=== PATIENT | male | born 1945 | race African-American/Black ===

== ENCOUNTER 2020-11-25 09:48 | Inpatient (IN) | payer MEDICARE, SELFPAY ==
[2020-11-25] VITALS (16 sets, daily range): BP systolic 141–192; BP diastolic 56–97; PULSE 72–126; RESP 17–23; TEMP 35.9–36.6; O2SAT 86–99; BMI 27.6
--- NOTE | ~2020-11-25 | CT_ITS ---
EXAMINATION: CTA chest PE protocol DATE: 11/25/2020 10:54 INDICATION: Chest pain and shortness of breath TECHNIQUE: Computed tomography angiography (CTA) of the chest was performed with 100 mL Omnipaque-350 intravenous contrast timed to evaluate the pulmonary arteries. Coronal maximum intensity projection 3D-reconstructions were created by the technologist. The dose-length product (DLP) was 651.03 mGy-cm. Automated exposure control and iterative reconstruction technique were employed. COMPARISON: None. FINDINGS: There is good contrast opacification of the pulmonary arteries. There is a large embolus in the right main pulmonary artery with emboli extending into all of the visualized proximal right pulm onary arterial branches. A saddle embolus is present in the main pulmonary arteries which extends int o the left lower lobe pulmonary arteries. There are also smaller pulmonary emboli involving a proxima l branch of the left upper lobe pulmonary artery as well as smaller subsegmental emboli in the left u pper lobe. There is straightening of the interventricular septum of the heart. The heart size is norm al. The lungs are free of acute opacities. There is scarring in the left lung apex. There is no pleur al effusion or pneumothorax. No pathologically enlarged thoracic lymph nodes are identified. There is a 2.8 cm cyst in the upper pole of the left kidney. Two right renal arteries are noted. There is mil d thoracic spondylosis. IMPRESSION: 1. Central pulmonary emboli involving the right main pulmonary artery and multiple proximal branches as well as sagittal embolus and additional emboli in the left lung. Findings suggestive of right hear t strain. These findings were discussed with Dr. Tate Oswald MD in the Emergency Department at 1109 hours on 11/25/2020. Reviewed, dictated and finalized at location [facility] [employer] IMPRESSION: 1. Central pulmonary emboli involving the right main pulmonary artery and multi ple proximal branches as well as sagittal embolus and additional emboli in the left lung. Findings suggestive of right heart strain. These findings were discu ssed with Dr. Tate Oswald MD in the Emergency Department at 1109 hours o n 11/25/2020.
--- NOTE | ~2020-11-25 | US_ITS ---
EXAMINATION: US venous doppler LE EXAM DATE: 11/25/2020 14:50 INDICATION: PE/Swelling PE . TECHNIQUE: Multiple grayscale, color flow and Doppler images of the lower extremity deep venous syste ms bilaterally were obtained and reviewed. Correlation is made to CT pulmonary same date. FINDINGS: Right side: The right common femoral, femoral and profunda veins demonstrate normal color flow, respi ratory variation, augmentation and compressibility. Compressibility, color flow confirmed within the right popliteal, posterior tibial, peroneal, and greater saphenous veins. Left side: The left common femoral, femoral and profunda veins demonstrate normal color flow, respira tory variation, augmentation and compressibility. Compressibility, color flow confirmed within the l eft popliteal, posterior tibial, peroneal, and greater saphenous veins. IMPRESSION: 1. No lower extremity deep venous thrombosis bilaterally. Reviewed, dictated and finalized at location . [facility]
--- NOTE | 2020-11-25 09:56 | ECG_ITS ---
Measurements Intervals [place] Rate: 126 P: 36 CT: 124 QRS: -65 QRSD: 139 T: 46 QT: 326 QTc: 472 Interpretive Statements SINUS TACHYCARDIA RIGHT BUNDLE BRANCH BLOCK LEFT ANTERIOR FASCICULAR BLOCK BASELINE ARTIFACT- II, III, AVL, AVF, V3 ABNORMAL ECG Electronically Signed On 11-25-2020 11:48:17 [employer] ENGINEERING MANAGER by Giovanni Avendano D.O.
[2020-11-25 10:20] LABS: Basophils Percent Auto 0.3 % (0.2-1.2); Eosinophils Absolute Auto 0.2 K/mm3 (0-0.3); Hematocrit 44.5 % (42.0-52.0); Hemoglobin 14.9 g/dL (14.0-18.0); Immature Granulocyte Absolute 0.07 K/mm3 (0.00-0.031); Immature Granulocyte Percent A 0.7 % (0-0.5); Immature Platelet Fraction Pct 5.2 % (0.9-11.2); Lymphocytes Absolute Auto 1.63 K/mm3 (0.9-3.2); Lymphocytes Percent Auto 16.8 % (18.3-44.2); Mean Corpuscular HGB Conc 33.5 g/dl (32-36); Mean Corpuscular Hemoglobin 30.5 pg (26-34); Mean Corpuscular Volume 91.2 fl (80-100); Mean Platelet Volume 10.3 fl (7.4-10.4); Monocytes Absolute Auto 0.9 K/mm3 (0.1-0.6); Neutrophils Absolute Auto 6.9 K/mm3 (1.3-6.7); Neutrophils Percent Auto 71.2 % (45.5-73.1); Platelet Count Result 119 k/mm3 (150-375); Red Blood Count 4.88 M/mm3 (4.6-6.20); Red Cell Distribution Width 12.9 % (11.5-14.5); White Blood Count 9.7 K/mm3 (4.5-10.0)
[2020-11-25 10:29] LABS: Prothrombin Time 13.4 Seconds (11.1-14.7)
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
[2020-11-25 10:30] LABS: Anion Gap 4 mmol/L (8-16); Blood Urea Nitrogen 15 mg/dL (9-20); Calcium 9.2 mg/dL (8.4-10.2); Carbon Dioxide 31 mmol/L (22-30); Chloride 103 mmol/L (98-107); Estimated CRCL calculation 51 ml/min; Estimated Glomerular Filt Rate > 60; Glucose 196 mg/dL (75-110); Partial Thromboplastin Time 21.2 SECONDS (22.3-36.8); Potassium 4.2 mmol/L (3.4-5.0); Sodium 138 mmol/L (137-145)
[2020-11-25 10:45] LABS: NT Pro B Type Natriuretic Pept 175 PG/ML (5-100); Troponin I 0.084 ng/mL (0.000-0.034)
[2020-11-25] MEDS: HEPARIN SODIUM 5,000 UNITS/ML VIAL 6500 UNITS IV PUSH (11:02)
[2020-11-25] MEDS: HEPARIN SOD/D5W 100 UNITS/ML 25,000 UNITS/250 ML BAG 13 UNITS IV CONT (11:17)
--- NOTE | 2020-11-25 12:21 | PC.NURSE ---
Jose [facility] called and asked questions about pt over phone. requesting facesheet and states that they will call with a bed
[2020-11-25 13:19] LABS: Troponin I 0.755 ng/mL (0.000-0.034)
--- NOTE | 2020-11-25 13:55 | PC.NURSE ---
Ordered pt lunch tray
[2020-11-25 16:32] LABS: Glucose Point of Care 257 (65-105)
--- NOTE | 2020-11-25 17:50 | PC.NURSE ---
This patient, Zach Brady, was admitted to IMU Room 210-01. Patient/family oriented to hospital policies and general routines including ID bracelet, bed and alarms, visiting hours, pain management, procedures, bathroom and other care routines, personal items, smoking policy, room service/diet, and visiting hours. Information on how to activate the Rapid Response Team has been discussed. Patient/Family are encouraged to report perceived risks to care and to ask questions if they do not understand what they are told or what they should do.
[2020-11-25 18:03] LABS: Troponin I 0.931 ng/mL (0.000-0.034)
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
[2020-11-25 21:12] LABS: Glucose Point of Care 280 (65-105)
[2020-11-25] MEDS: IRBESARTAN 150 MG TABLET PO (21:44)
[2020-11-25] MEDS: SODIUM CHLORIDE 0.9% IV 1,000 ML 100 ML IV CONT (21:44)
[2020-11-25] MEDS: hydroCHLOROthiazide 12.5 MG CAPSULE PO (21:44)
[2020-11-26] VITALS (13 sets, daily range): BP systolic 132–179; BP diastolic 73–92; PULSE 90–111; RESP 20–23; TEMP 35.6–36.6; O2SAT 94–100
--- NOTE | 2020-11-26 | ECHO_ITS ---
Patient Info Name: Zach Brady Age: 75 years : 1945 Gender: Male Ht: 67 in Wt: 181 lbs BSA: 1.99 m2 HR: 95 bpm BP: 179 / 92 mmHg Heart Rhythm: Sinus Rhythm Technical Quality: Good Exam Date: 11/26/2020 10:50 AM Exam Location: [facility] Patient Status: Inpatient Admit Date: 11/25/2020 Staff Ordering Physician: Tate Oswald MD Manager Night: Zach Chang RDCS Attending Provider: Marylou Vincent MD Referring Physician: Darek CALDERON; Exam Type: CA echo doppler color flow Study Info Indications I26.09 - Other pulmonary embolism with acute cor pulmonale Complete two-dimensional, color flow and Doppler transthoracic echocardiogram is performed. History/Risk Factors Pulmonary embolism w/ right heart strain seen on CT; syncope, DM, HTN, chest pain, elevated trops. Summary 1. Complete two-dimensional, color flow and Doppler transthoracic echocardiogram is performed. 2. Left ventricular chamber dimension is normal. 3. Left ventricular systolic function is normal, estimated at 60-65%. 4. There is mildly increased left ventricular wall thickness. 5. Left ventricular septal wall motion is normal. 6. The left ventricular diastolic function is grade I diastolic dysfunction. 7. Left atrial chamber dimension is mildly enlarged. 8. There is mild mitral valve regurgitation. 9. There is mild aortic valve regurgitation. 10. Moderate pulmonary hypertension, estimated pulmonary arterial systolic pressure is 46 mmHg. 11. There is mild tricuspid valve regurgitation. Left Ventricle Left ventricular chamber dimension is normal. Left ventricular systolic function is normal, estimated at 60-65%. There is mildly increased left ventricular wall thickness. Left ventricular septal wall motion is normal. The left ventricular diastolic function is grade I diastolic dysfunction. Right Ventricle Right ventricular chamber dimension is normal. Right ventricular systolic function is normal. Left Atria Left atrial chamber dimension is mildly enlarged. Right Atria Right atrial chamber dimension is normal. Atrial Septum Intact interatrial septum visualized by color flow imaging. Aortic Valve The aortic valve is trileaflet. There is mild aortic valve sclerosis. There is no aortic valve stenosis. There is mild aortic valve regurgitation. Pulmonic Valve The pulmonic valve is normal. There is no pulmonic valve stenosis. There is trace pulmonic regurgitation. Mitral Valve The mitral valve has normal leaflets. There is no mitral valve stenosis. There is mild mitral valve regurgitation. Tricuspid Valve The tricuspid valve leaflets are normal. There is no significant tricuspid valve stenosis. There is mild tricuspid valve regurgitation. Moderate pulmonary hypertension, estimated pulmonary arterial systolic pressure is 46 mmHg. Pericardium/Pleural The pericardium appears normal. There is trivial pericardial effusion. Inferior Vena Cava Normal inferior vena cava with >50% collapse upon inspiration consistent with normal right atrial pressure, 5 mmHg. Aorta The aortic root size at the sinus of Valsalva is mildly dilated. Left Ventricular Outflow Tract Name Value Normal LVOT 2D
[2020-11-26 03:30] LABS: Basophils Percent Auto 0.4 % (0.2-1.2); Eosinophils Absolute Auto 0.1 K/mm3 (0-0.3); Eosinophils Percent Auto 0.7 % (0-4.4); Hematocrit 36.4 % (42.0-52.0); Hemoglobin 12.2 g/dL (14.0-18.0); Immature Granulocyte Absolute 0.03 K/mm3 (0.00-0.031); Immature Granulocyte Percent A 0.4 % (0-0.5); Immature Platelet Fraction Pct 4.6 % (0.9-11.2); Lymphocytes Absolute Auto 1.22 K/mm3 (0.9-3.2); Lymphocytes Percent Auto 16.1 % (18.3-44.2); Mean Corpuscular HGB Conc 33.5 g/dl (32-36); Mean Corpuscular Hemoglobin 30.4 pg (26-34); Mean Corpuscular Volume 90.8 fl (80-100); Mean Platelet Volume 9.9 fl (7.4-10.4); Monocytes Absolute Auto 0.7 K/mm3 (0.1-0.6); Monocytes Percent Auto 9.5 % (2.6-8.5); Neutrophils Absolute Auto 5.6 K/mm3 (1.3-6.7); Neutrophils Percent Auto 72.9 % (45.5-73.1); Platelet Count Result 110 k/mm3 (150-375); Red Blood Count 4.01 M/mm3 (4.6-6.20); Red Cell Distribution Width 12.8 % (11.5-14.5); White Blood Count 7.6 K/mm3 (4.5-10.0)
[2020-11-26 03:40] LABS: Partial Thromboplastin Time 136.5 SECONDS (22.3-36.8)
[2020-11-26 03:42] LABS: Anion Gap 1 mmol/L (8-16); Blood Urea Nitrogen 20 mg/dL (9-20); Calcium 8.6 mg/dL (8.4-10.2); Carbon Dioxide 31 mmol/L (22-30); Chloride 105 mmol/L (98-107); Estimated CRCL calculation 56 ml/min; Estimated Glomerular Filt Rate > 60; Glucose 264 mg/dL (75-110); Magnesium 1.7 mg/dL (1.6-2.3); Potassium 3.9 mmol/L (3.4-5.0); Sodium 137 mmol/L (137-145)
[2020-11-26 08:34] LABS: Glucose Point of Care 281 (65-105)
[2020-11-26] MEDS: SODIUM CHLORIDE 0.9% IV 1,000 ML 100 ML IV CONT ×2 (09:07→20:55)
[2020-11-26] MEDS: INSULIN ASPART (*BKC) 100 UNITS/ML SUB-Q ×2 (09:08→12:41)
[2020-11-26] MEDS: HEPARIN SOD/D5W 100 UNITS/ML 25,000 UNITS/250 ML BAG 9 UNITS IV CONT (09:09)
[2020-11-26] MEDS: HEPARIN SODIUM 5,000 UNITS/ML VIAL 6000 UNITS IV PUSH (12:41)
[2020-11-26 12:44] LABS: Glucose Point of Care 262 (65-105)
[2020-11-26 13:56] LABS: SARS-CoV-2 RNA PCR Negative
--- NOTE | 2020-11-26 16:01 | PM.IMPN ---
Progress Note: A&P Assessment and Plan (1) Acute saddle pulmonary embolism: Qualifiers: Acute cor pulmonale presence: unspecified Qualified Code(s): I26.92 - Saddle embolus of pulmonary artery without acute cor pulmonale Code(s): I26.92 - Saddle embolus of pulmonary artery without acute cor pulmonale Status: Acute Assessment and Plan: The patient has been admitted to IMU, telemetry. Continue IV heparin. pain control as needed with IV morphine. Continue supplemental oxygen. Continuous pulse oximetry. The patient is currently awaiting transfer to [facility] for possible catheter directed tPA therapy. 11/26/20 16:01 Patient is 75-year-old male was brought to the emergency department after he had a syncopal episode with collapse upon arrival patient had a elevated D-dimer CTA of the lungs showed a massive pulmonary emboli with right heart strain most likely cause of his syncopal episode, with significant large emboli and right heart strains patient will benefit EKOS, ER physician spoke with Dr. Wells at [facility] and patient is accepted for transfer waiting for bed, mean while patient is started on Heparin and today patient stats he is feeling much better and not as short of breath. concerned patient may COVID patient is tested and isolated, patient had a cardiac echo patient is a preserved systolic function with ejection fraction 60-65%, right ventricle is normal in dimension as well as systolic function suggesting patient does not right heart strain, will continue to monitor and further recommendation to follow. (2) Syncope and collapse: Code(s): R55 - Syncope and collapse Status: Acute Assessment and Plan: appears to be secondary to acute PE. The patient does have history of orthostasis. Light IV hydration overnight. Continue telemetry. Check TSH reflex T4. Echocardiogram in a.m.. Fall precautions. (3) Elevated troponin: Code(s): R77.8 - Other specified abnormalities of plasma proteins Status: Acute Assessment and Plan: appears to be secondary to acute bilateral pulmonary emboli. Trend troponin. Monitor for chest pain. (4) Chest pain: Qualifiers: Chest pain type: chest pain on breathing Qualified Code(s): R07.1 - Chest pain on breathing Code(s): R07.9 - Chest pain, unspecified Status: Acute Assessment and Plan: Pleuritic chest pain is likely secondary to acute pulmonary embolism. Continue pain control as needed. Continue treatment for acute PE. (5) Suspected 2019 novel coronavirus infection: Code(s): Z20.822 - Contact with and (suspected) exposure to COVID-19 Status: Acute Assessment and Plan: Patient was swabbed in the emergency room for COVID-19. Continue droplet isolation. COVID-19 results are pending. 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 (7) Hypertension: Qualifiers: Hypertension type: unspecified Qualified Code(s): I10 - Essential (primary) hypertension Code(s): I10 - Essential (primary) hypertension Status: Chronic Assessment and Plan: Monitor blood pressure. Continue hydrochlorothiazide and irbesartan. Subjective Date/time seen: 11/26/20 16:01 Patient is 75-year-old male was brought to the emergency department after he had a syncopal episode with collapse upon arrival patient had a elevated D-dimer CTA of the lungs showed a massive pulmonary emboli with right heart strain most likely cause of h
[2020-11-26 17:23] LABS: Glucose Point of Care 188 (65-105)
[2020-11-26 19:30] LABS: Partial Thromboplastin Time 194.4 SECONDS (22.3-36.8)
[2020-11-26 20:16] LABS: Glucose Point of Care 262 (65-105)
[2020-11-26] MEDS: IRBESARTAN 150 MG TABLET PO (20:57)
[2020-11-26] MEDS: hydroCHLOROthiazide 12.5 MG CAPSULE PO (20:57)
--- NOTE | 2020-11-27 11:09 | PM.TDS ---
Transfer Discharge Sum: Prov Provider Date of admission: 11/25/20 14:20 Primary care physician: Vanesa Wood, DO Admitting clinician: Marylou Vincent MD DS: Admitting Diagnosis Admitting Diagnosis Admitting Diagnosis: Chief Complaint: Acute syncope and collapse. DS: Discharge Diagnosis Discharge Diagnosis (1) Acute saddle pulmonary embolism: Qualifiers: Acute cor pulmonale presence: unspecified Qualified Code(s): I26.92 - Saddle embolus of pulmonary artery without acute cor pulmonale Code(s): I26.92 - Saddle embolus of pulmonary artery without acute cor pulmonale Status: Acute Assessment and Plan: The patient has been admitted to IMU, telemetry. Continue IV heparin. pain control as needed with IV morphine. Continue supplemental oxygen. Continuous pulse oximetry. The patient is currently awaiting transfer to [facility] for possible catheter directed tPA therapy. 11/26/20 16:01 Patient is 75-year-old male was brought to the emergency department after he had a syncopal episode with collapse upon arrival patient had a elevated D-dimer CTA of the lungs showed a massive pulmonary emboli with right heart strain most likely cause of his syncopal episode, with significant large emboli and right heart strains patient will benefit EKOS, ER physician spoke with Dr. Wells at [facility] and patient is accepted for transfer waiting for bed, mean while patient is started on Heparin and today patient stats he is feeling much better and not as short of breath. concerned patient may COVID patient is tested and isolated, patient had a cardiac echo patient is a preserved systolic function with ejection fraction 60-65%, right ventricle is normal in dimension as well as systolic function suggesting patient does not right heart strain, will continue to monitor and further recommendation to follow. (2) Syncope and collapse: Code(s): R55 - Syncope and collapse Status: Acute Assessment and Plan: appears to be secondary to acute PE. The patient does have history of orthostasis. Light IV hydration overnight. Continue telemetry. Check TSH reflex T4. Echocardiogram in a.m.. Fall precautions. (3) Elevated troponin: Code(s): R77.8 - Other specified abnormalities of plasma proteins Status: Acute Assessment and Plan: appears to be secondary to acute bilateral pulmonary emboli. Trend troponin. Monitor for chest pain. (4) Chest pain: Qualifiers: Chest pain type: chest pain on breathing Qualified Code(s): R07.1 - Chest pain on breathing Code(s): R07.9 - Chest pain, unspecified Status: Acute Assessment and Plan: Pleuritic chest pain is likely secondary to acute pulmonary embolism. Continue pain control as needed. Continue treatment for acute PE. (5) Suspected 2019 novel coronavirus infection: Code(s): Z20.822 - Contact with and (suspected) exposure to COVID-19 Status: Acute Assessment and Plan: Patient was swabbed in the emergency room for COVID-19. Continue droplet isolation. COVID-19 results are pending. 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 (7) Hypertension: Qualifiers: Hypertension type: unspecified Qualified Code(s): I10 - Essential (primary) hypertension Code(s): I10 - Essential (primary) hypertension Status: Chronic Assessment and Plan: Monitor blood pressure. Continue hydrochlorothiazide and irbesartan. Transfe
== END 2020-11-26 22:00 | disposition short-term general hospital (02) | DRG 176 ==
LOC: ANHED 10:45 → ANHIMU 15:02
PROVIDERS: Family Medicine; Nurse Practitioner; Admitting Provider Family Medicine; Emergency Provider Emergency Medicine; PCP Family Medicine; Visit Provider Family Medicine
DX: I26.92 Saddle embolus of pulmonary artery without acute cor pulmonale (principal); Z20.822 Contact with and (suspected) exposure to COVID-19; R09.02 Hypoxemia; E11.9 Type 2 diabetes mellitus without complications; R55 Syncope and collapse; I10 Essential (primary) hypertension; Z79.4 Long term (current) use of insulin; Z90.49 Acquired absence of other specified parts of digestive tract
CPT/HCPCS: 36415; 71275; 80048; 82948; 83735; 83880; 84443; 84484; 85025; 85055; 85610; 85730; 93005; 93306; 93970; 96365; 96366; 99285; A9270; C9803; J1644; J1815; J7030; Q9967; U0003; U0005

== ENCOUNTER 2025-02-06 07:00 | Outpatient (CLI) | payer MEDICARE, SELFPAY ==
--- NOTE | ~2025-02-06 | PE_ITS ---
EXAMINATION: PET_PETPSMAST_PT DATE: 02/06/2025 09:20 INDICATION: Prostate cancer TECHNIQUE: 5.353 mCi of Illucix Ga-68([id number]) was administered i.v. Low dose computed josefina graphy (CT) images were acquired from the base of the brain to the base of the brain to the proximal thighs for attenuation correction and anatomic localization. Positron emission tomography (PET) image s were acquired in the same distribution beginning 86 minutes after injection. Images including fused PET/CT images were reconstructed in axial, coronal, and sagittal planes. Automated exposure control technique was employed. The dose-length product was 874.58mGy-cm. COMPARISON: None FINDINGS: Head/neck: Typical pattern of symmetric physiologic increased activity in the lacrimal, parotid and submandibula r glands as well as along the mucosa of the nasal and oral cavities, pharynx and hypopharynx. No path ologically enlarged cervical lymphadenopathy or suspicious foci of increased uptake in the visualized head or neck. Chest: Images are clear with no suspicious pulmonary nodules, pneumonia, pulmonary edema or pleural effusion . Heart size is normal. No pericardial effusion. Thoracic aorta is normal in caliber. No pathological ly enlarged or PSMA avid thoracic lymphadenopathy. Abdomen/pelvis/proximal thighs: Physiologic renal accumulation and excretion of activity in the kidneys, bladder and along portions o f ureters. 2.5 cm cyst at the upper pole the left kidney. Prostatomegaly measuring 6.5 x 5.1 cm. Ther e is approximately 3.5 x 2.5 x 2.0 cm region of prominent increased PSA may uptake with maximal SUV o f 39 at the right posterior aspect of the prostate. There is some urine contamination at the glans of the penis. Normal degree and slightly heterogenous pattern of increased uptake throughout the liver and spleen without radiologic correlate or dominant PSMA avid lesion. Cholecystectomy clips the gallb ladder fossa. The pancreas and bilateral adrenal glands are normal. Moderate uptake scattered through out the bowels with typical duodenal and proximal jejunal predominance and without radiologic correla te, also likely physiologic. Moderate diverticulosis along the sigmoid colon without adjacent from tr omaira stranding to suggest diverticulitis. Normal appendix. Likely vasectomy clips along the bilateral spermatic cords. No other abnormal foci of increased uptake or pathologically enlarged lymphadenopath y in the abdomen, pelvis or proximal thighs. Musculoskeletal: No suspicious lytic, blastic or PSMA avid bone lesions. IMPRESSION: 1. Large region of prominent increased activity at the right posterior aspect of the enlarged prostat e consistent with primary prostate cancer. No lesion suspicious for metastatic disease. Reviewed, dictated and finalized at location B. IMPRESSION: 1. Large region of prominent increased activity at the right posterior aspect o f the enlarged prostate consistent with primary prostate cancer. No lesion susp icious for metastatic disease.
--- OUTSIDE RECORDS SUMMARY | 2025-02-06 07:06 | XMS_ITS ---
Author Name Auto Generated, Auto Generated Organization [facility] Address [address] [place] [address] Phone [phone] Care Team Providers Care Chart Collector Name Role Phone Vanesa Wood Unavailable [phone] Genevieve Carlton Unavailable [phone] Functional Status No Results Mental Status No Results Allergies and Intolerances No Known Allergies Encounters Program Name Primary Diagnosis Admission Date/Time Dis charge Date/Time null WedJun 08 06:30 :00 EDT 2021 [facility] Nov 28 19:00:00 EST 2023February 09 08:00:00 EDT 2023 Problems Active Concerns * Parkinson's disease without dyskinesia, without mention of fluctuations* Code: * Start Date: WedNov 29 00:00:00 EST 2023 * End Date: * Text: * Repeated falls* Code: * Start Date: WedNov 29 00:00:00 EST 2023 * End Date: * Text: * Weakness* Code: * Start Date: WedNov 29 00:00:00 EST 2023 * End Date: * Text: * Unsteadiness on feet* Code: * Start Date: WedNov 29 00:00:00 EST 2023 * End Date: * Text: Reason for Referral Past Medical History
--- OUTSIDE RECORDS SUMMARY | 2025-02-06 07:06 | XMS_ITS | Referral Summary ---
Author Organization [facility] 8 [facility] Address [address] [place] [address] Care Team Providers Care Barrel Repairer Name Role Phone Maryam Alvarez MD Unavailable Roselyn Delarosa DO Unavailable [phone] Royal Neida Hsu MD Unavailable [phone] Genevieve Carlton MD PhD Unavailable [phone] Katerin Day MD Unavailable [phone] Sander Hou MD Unavailable [phone] Raul De León MD Unavailable [phone] Elen Carranza MD Unavailable [phone] Elinor Calderon NP Unavailable [phone] Ector Michaels MD Primary Care Provider Encounters Date Type Department Care Team Description 01/11/2025 11:00 AM CDT - 01/11/2025 12:00 PM CDT Surgery [facility] Operating Room [address] [place] [address] Tony Alcantara MD URONAV GUIDED PROSTATE BIOPSY 01/11/2025 9:56 AM CDT Anesthesia Event [facility] Operating Room [address] [place] [address] Zaki Lisa MD McDowell, Juri Osmell, MD 01/11/2025 8:18 AM CDT - 01/11/2025 12:30 PM CDT Hospital Encounter [facility] Operating Room [address] [place] [address] Tony Alcantara MD Elevated prostate specific antigen (PSA) Discharge Disposition: Discharge to home or self care 12/28/2024 11:15 AM CDT Office Visit [address] 6[address] [place] [address] Kvng, Elinor Marquez NP Lewy body dementia without behavioral disturbance (HCC) (Primary Dx); Speech and language deficits 12/19/2024 Telephone [facility] Medical [facility] Diabetes and Endocrinology [address] [place] [phone] Maryam Alvarez MD Forms/questionnaires ( Advanced) 12/18/2024 Telephone [facility] Diabetes [facility] Endocrinology [address] [place] [phone] Lawanda Belcher NP [employer] 12/18/2024 3:00 PM CDT Office Visit [facility] Diabetes [facility] Endocrinology [address] [place] [phone] Lawanda Belcher NP Type 1 diabetes mellitus with hyperglycemia (HCC) (Primary Dx); Hypertension associated with type 1 diabetes mellitus (HCC); Insulin pump status 12/12/2024 Telephone [facility] Diabetes [facility] Endocrinology [address] [place] [phone] Lawanda Belcher NP Forms/questionnaires ([employer]) 11/27/2024 2:45 PM QUALITY CONTROLLER Orders Only [facility] [address] [place] [address] from Last 3 Months Allergies Active Allergy Reactions Criticality Noted Date Comments Famotidine Delusions Medium 11/28/2020 Medications lancing device misc Lancing device for One Touch Ultra 0 012 Active docusate sodium (COLACE) 100 mg capsuleIndicatio ns:constipation Take 1 capsule (100 mg total) by mouth as needed for constipation Active blood-glucose meter [facility] [place] blood[place]glu meter,cont-trans liliam [facility] [place] urine glucose-ketones test stripIndications :Type 1 diabetes mellitus with hyperglycemia (HCC) Use as needed 50 strip 1 021 Active insulin syringe-needle U-100 0.5 mL 31 gauge x 5/16 syringeIndicatio ns:Type 1 diabetes mellitus with hyperglycemia (HCC) Use to inject 4 times daily as directed 100 each 021 Active blood glucose diagnostic (Contour Next Test Strips) stripIndications :Type 1 diabetes mellitus with hyperglycemia (HCC) Use to test blood sugars twice a day 200 strip 1 021 Active glucagon (Baqsimi) 3 mg/actuation spray,non-aeroso l Administer 1 spray into one nostril as needed (use for hypoglycemia) 2 each 3 022 Active MiniMed [place] Advance Inf Set23 infusion set 024 Active [facility] [place] [address] 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) TAKE 1 TABLET BY MOUTH EVERY 12 HOURS 200 tablet 2 025 Active NIFEdipine (NIFEdipine CC) 60 mg 24 hr tablet Take 1 tablet (60 mg total) by mouth every evening Active cholecalciferol (VITAMIN D-3) 5,000 unit tablet Take 1 tablet (5,000 Units total) by mouth every other day Active donepeziL (ARICEPT) 5 mg tablet Take 1 tablet (5 mg total) by mouth every morning Active spironolactone (ALDACTONE) 25 mg tablet Take 1 tablet (25 mg total) by mouth 2 (two) times a day Active silver sulfadiazine (SILVADENE, SSD) 1 % creamIndications :skin ulcer Apply 1 g topically daily as needed for wound care Active acetaminophen ER (TYLENOL) 650 mg 8 hr tablet Take 1 tablet (650 mg total) by mouth every 8 (eight) hours as needed for pain 650 mg-1300 mg every 8 hr prn Active insulin lispro (HumaLOG, ADMELOG) 100 unit/mL vial for injectionIndicat ions:Type 1 diabetes mellitus with hyperglycemia (HCC) INJECT 50 UNITS SUBCUTANEOUSLY DAILY VIA INSULIN PUMP DIRECTED 50 mL 2 025 Active insulin lispro (HumaLOG) 100 unit/mL vial for injection INJECT SUBCUTANEOUSLY 50 UNITS DAILY VIA INSULIN PUMP DIRECTED 50 mL 3 024 2024 Discontinued Active Problems Problem Noted Date Diagnosed Date Elevated prostate specific antigen (PSA) 025 Encounter for Medicare annual wellness exam 04/2024 Assessment & Plan (08/17/2024 1:51 PM QUALITY CONTROLLER): A(n) yearly Medicare Annual Wellness Visit has been performed today. Mick Baron is not up to date on screening tests. He is in need of Hepatitis B screening. He is not up to date on needed preventative vaccinations; He is in need of Influenza, given today. We discussed healthy lifestyle habits, educational material has been given. Medications reviewed, changes documented as per the medical record and discussed with patient along with risks vs benefits. Specific topics reviewed: drugs, ETOH, and tobacco, importance of regular dental care, importance of regular exercise, importance of varied diet, limit TV, media violence, minimize junk food, and seat belts. Return in 6 months Benign prostatic hyperplasia with nocturia 08/16 Acute saddle pulmonary embolism with acute cor p ulmonale 04/06/2024 Establishing care with new doctor, encounter for 04/06/2024 Assessment & Plan (04/06/2024 2:32 PM CDT): A(n) initial visit to establish care has been performed today. Mick Baron is not up to date on screening tests. He is in need of Diabetic foot exam, Diabetic kidney disease screening, and Cholesterol screening. He is up to date on needed preventative vaccinations. We discussed healthy lifestyle habits, educational material has been given. Medications reviewed, changes documented as per the medical record and discussed with patient along with risks vs benefits. Return in 5 months Frequent falls 11/22/2023 Assessment & Plan (11/22/2023 2:26 PM QUALITY CONTROLLER): Physical therapy, occupational therapy Balance problem 11/22/2023 Parkinsonism 11/22/2023 Double vision 11/22/2023 Assessment & Plan (11/22/2023 2:25 PM QUALITY CONTROLLER): Occurs only when reading, f/u with opthalmology Insulin pump status 05/01/2021 Assessment & Plan (12/18/2024 4:00 PM CDT): Pump setting changes: -Bolus BEFORE eating -change from 9am to 10a & increased from 1.15 to 1.25 units/hr. Current medications: Humalog via Medtronic 780G insulin pump BR: 12a 0.575, 4a 0.650, 7a 0.75, 10a 1.25, 3p 0.975, 11p 0.650 CR 7.8 CF 30 Target 110 AIT 2 hours Assessment & Plan (05/15/2024 10:52 AM CDT): Decreased active insulin time from 3 hours to 2 hours: Current medications: Humalog via Medtronic 780G insulin pump BR: 12a 0.575, 4a 0.650, 7a 0.75, 9a 1.15, 3p 0.975, 11p 0.650 CR 7.8 CF 30 Target 110 AIT 2 hours Assessment & Plan (07/12/2023 11:29 AM CDT): Persistently elevated blood sugars. Below are basal rate changes: BR: 12a changed from 0.475 to 0.575, 4a 0.650, 7a changed from 0.725 to 0.75, added 9am 1.15, 3p changed from 0.875 to 0.975, 11p stayed same at 0.650 Current medications: Novolog via medtronic 670G pump BR: 12a 0.575, 4a 0.65 7a 0.75, 9a 1.15, 3p 0.975 11p 0.65 CR 8 CF 30 Target 110 Assessment & Plan (04/06/2023 10:33 AM CDT): Pump setting changes to basal rates at 10am (increased from 0.90 to 1.0) & 3p (increased from 0.775 to now 0.875) Current medications: Novolog via medtronic 670G pump BR: 12a 0.475, 4a 0.650, 7a 0.725, 10a 1.0, 3p 0.875, 11p 0.650 CR 8 CF 30 Target 110 Assessment & Plan (05/01/2021 3:26 PM CDT): Continue current settings Lewy body dementia without behavioral disturbanc e 03/24/2021 Overview (06/26/2024): Onset 2017 (shuffling, visual hallucinations, fluctuations) Meds: donepezil/Aricept 10 mg (did not increase due to bradycardia, avoiding Namenda due to renal impairment). Assessment & Plan (06/26/2024 10:39 AM CDT): Onset 2017 (shuffling, visual hallucinations, fluctuations) Meds: donepezil/Aricept 10 mg (did not increase due to bradycardia, avoiding Namenda due to renal impairment). -provided blood sample today for genetic research - met with career specialist for resources and support -patient is interested in opportunities for research, provided information on where to obtain (see AVS. Assessment & Plan (11/22/2023 2:25 PM QUALITY CONTROLLER): Donepezil/Aricept 10 mg daily Namenda not indicated at this mild stage of impairment. Would need to clear with nephrology Physical therapy, occupational therapy and Speech Therapy Parkinson's Disease resources provided by Platform Power Technician Tamra Valerio Assessment & Plan (08/10/2023 12:34 PM CDT): Managed by neurology, continue donepezil . Assessment & Plan (08/05/2022 11:16 AM CDT): Stable. Cont. Current prescription medications. Patient managed by the memory center in [place]. Assessment & Plan (04/06/2022 5:23 PM CDT): Stable course of disease. Some improvement in daily life. Short term memory issues captured in testing. Continue Aricept 5mg every morning. Do not recommend increase given lower heart rate. No plans to add Namenda or Sinemet at the current time. [place] follow[place] driving [place] RTC in 1 year. Assessment & Plan (08/04/2021 6:19 PM CDT): Stable. Cont. Current prescription medications. Assessment & Plan (05/09/2021 11:57 AM CDT): Stable. Followed by Neurology. Continue current medications. Assessment & Plan (03/24/2021 2:11 PM CDT): Brain MRI - 3D Sleep Medicine for RBD evaluation Aricept 5mg at night, monitor for visual hallucinations Anemia 12/10/2020 Assessment & Plan (12/19/2020 12:21 PM QUALITY CONTROLLER): Clinically improving. Keep scheduled appointment with electrical engineering director oncologist. Thrombocytopenia 11/29/2020 Assessment & Plan (08/05/2022 11:17 AM CDT): Followed closely by Hematology. Asymptomatic. Keep scheduled appointment. Assessment & Plan (12/19/2020 12:20 PM QUALITY CONTROLLER): Followed by hematology oncology. Clinically improving. Assessment & Plan (12/02/2020 1:39 PM QUALITY CONTROLLER): ctm Assessment & Plan (12/01/2020 2:18 PM QUALITY CONTROLLER): ctm History of pulmonary embolism 11/26/2020 Assessment & Plan (05/09/2021 11:56 AM CDT): Asymptomatic. Managed by Hematology-Oncology. Continue current medications. Assessment & Plan (12/19/2020 12:18 PM QUALITY CONTROLLER): This patient has upcoming appointment with Hematology-Oncology. Patient currently on Lovenox, will remain on this dose until seen by Hematology-Oncology. Long discussion on possible workup for his sudden acute saddle pulmonology embolism. Patient also has some concerns about getting his 2nd COVID vaccine. He had the 1st vaccine administered prior to him spontaneously acquiring this saddle pulmonary embolism. Encouraged patient to discuss this in detail with the electrical engineering director on his upcoming visit. Assessment & Plan (12/02/2020 1:39 PM QUALITY CONTROLLER): Cont lmwh Heme follow up Assessment & Plan (12/02/2020 1:29 PM QUALITY CONTROLLER): Doing well, but need to minimize risk of hypoglycemia. Assessment & Plan (12/01/2020 2:16 PM QUALITY CONTROLLER): Syncope 11/25 with large saddle PE extending into right PA - LED/UED neg - TTE: normal RV size, TAPSE 1.6, 60/60 sign. EF 65% - Hep gtt - given size of PE and unclear precipitant will transition to lovenox rather than a NOAC at this time until heme f/u - Vascular evaluated - No right heart strain so no benefit to thrombectomy at this point - OP heme referral Visual hallucination 08/21/2020 Speech and language deficits 04/23/2020 Assessment & Plan (11/22/2023 2:26 PM QUALITY CONTROLLER): Speech Therapy Assessment & Plan (04/23/2020 5:50 PM CDT): Modified Barium swallow - call with results Start Pepcid 40 mg at bedtime Call if no improvement in 8 weeks LPR discussed and Handout provided Laryngeal spasm 04/23/2020 Assessment & Plan (04/23/2020 5:51 PM CDT): Modified Barium swallow - call with results Start Pepcid 40 mg at bedtime Call if no improvement in 8 weeks LPR discussed and Handout provided Dysphagia 03/25/2020 Assessment & Plan (04/23/2020 5:51 PM CDT): Modified Barium swallow - call with results Start Pepcid 40 mg at bedtime Call if no improvement in 8 weeks Assessment & Plan (03/25/2020 8:40 AM CDT): Referred to ENT for further eval/mgmt. Chronic neck pain 03/25/2020 Chronic throat clearing 11/27/2019 Assessment & Plan (11/27/2019 8:44 AM QUALITY CONTROLLER): Consider adding Zyrtec 10 mg daily. BMI 27.0-27.9,adult 07/31/2019 Gait disturbance 02/20/2019 Hypertension associated with type 1 diabetes vera litus 02/24/2014 Overview (03/25/2020): Assessment & Plan (12/18/2024 3:17 PM CDT): Chronic problem. Controlled on current spironolactone 25mg daily. Assessment & Plan (05/15/2024 10:35 AM CDT): Chronic problem. Controlled on current spironolactone 25mg daily. Assessment & Plan (08/10/2023 12:32 PM CDT): Blood pressure at goal less than 140/90, continue current prescription medications, spironolactone. Assessment & Plan (04/06/2023 10:32 AM CDT): Chronic problem. Controlled on current spironolactone 25mg daily. Nifedipine stopped earlier this month d/t orthostatic hypotension. No changes at this time. Assessment & Plan (09/17/2022 5:04 PM QUALITY CONTROLLER): Chronic, well controlled Importance of low salt diet and exercise were discussed Continue current meds Assessment & Plan (08/05/2022 11:18 AM CDT): Blood pressure at goal less than 140/90, continue current prescription medications. Managed by Nephrology. Assessment & Plan (02/26/2022 2:43 PM CDT): Chronic, well controlled Continue current meds Assessment & Plan (11/27/2021 12:14 PM QUALITY CONTROLLER): Goal blood pressure is less than 140/85 Low salt diet was discussed andd recommended The importance of daily aerobic exercise was also emphasized. Continue current meds. Assessment & Plan (08/21/2021 2:26 PM QUALITY CONTROLLER): BP at goal Low salt diet Exercise Continue current meds Assessment & Plan (08/04/2021 6:20 PM CDT): Low blood pressure today without symptoms. Encouraged patient to reach out to mast maker about today's bp reading. Also, encouraged patient to increase daily water intake. Assessment & Plan (05/09/2021 11:56 AM CDT): Not yet at goal of less than 140/90. Increase it irbesartan 150 mg daily up to 300 mg daily. Continue hydrochlorothiazide. Referred to Nephrology for further evaluation and management. Assessment & Plan (05/01/2021 3:24 PM CDT): Controlled on current medications. Continue plan. Assessment & Plan (02/06/2021 9:41 AM CDT): Improving. Continue current management. Will hold off on referral to nephrology at this time. Assessment & Plan (01/30/2021 2:29 PM CDT): Goal blood pressure is less than 140/85 Low salt diet was discussed andd recommended The importance of daily aerobic exercise was also emphasized. Continue current meds, including INDU-I or ARB, e.g. Avapro Assessment & Plan (12/19/2020 12:21 PM QUALITY CONTROLLER): Well controlled. Continue current management. Assessment & Plan (12/02/2020 1:38 PM QUALITY CONTROLLER): BP low normal since arrival - continue to hold home HCTZ and ARB Assessment & Plan (11/29/2020 8:20 PM QUALITY CONTROLLER): BP low normal since arrival - continue to hold home HCTZ and ARB Assessment & Plan (10/25/2020 9:32 AM QUALITY CONTROLLER): Controlled on current medications. Continue plan. Assessment & Plan (08/01/2020 9:06 PM CDT): Clinically improved, continue current meds. Assessment & Plan (07/11/2020 9:10 AM CDT): Controlled on current medications. Continue plan. Assessment & Plan (04/04/2020 10:07 AM CDT): Goal blood pressure is less than 140/85 Low salt diet recommended Daily aerobic exercise Continue current meds, including INDU-I or ARB Assessment & Plan (03/25/2020 8:39 AM CDT): Hypotensive today, will d/c HCTZ. Patient denies any current dependent edema. Check bps daily, if bps do not improve and become asymptomatic, notify our office for an earlier appt. Assessment & Plan (12/28/2019 11:09 AM CDT): Controlled on current medications. Continue plan. Assessment & Plan (11/27/2019 8:44 AM QUALITY CONTROLLER): Clinically improved, continue current meds. Assessment & Plan (09/14/2019 12:15 PM QUALITY CONTROLLER): Goal blood pressure is less than 140/85 Low salt diet recommended Daily aerobic exercise Continue current meds, including INDU-I or ARB \ Assessment & Plan (05/23/2019 9:41 AM CDT): Goal blood pressure is less than 140/85 Low salt diet recommended Daily aerobic exercise Continue current meds, including INDU-I or ARB Assessment & Plan (02/21/2019 10:22 AM CDT): Goal blood pressure is less than 140/85 Low salt diet recommended Daily aerobic exercise Continue current meds, including INDU-I or ARB Assessment & Plan (11/27/2018 2:47 PM QUALITY CONTROLLER): Advised take HTN meds daily. Do not skip. Check home BP. If > 140/90 call. If > 160/100 then we likely need to add another medication. Assessment & Plan (08/04/2018 9:36 AM CDT): Goal blood pressure is less than 140/85 Low salt diet recommended Daily aerobic exercise Continue current meds, including INDU-I or ARB Assessment & Plan (05/05/2018 9:53 AM CDT): Goal blood pressure is less than 140/85 Low salt diet recommended Daily aerobic exercise Continue current meds, including INDU-I or ARB Assessment & Plan (09/23/2017 8:51 AM QUALITY CONTROLLER): Goal blood pressure is less than 140/85 Low salt diet recommended Daily aerobic exercise Continue current meds, including INDU-I or ARB Assessment & Plan (06/29/2017 3:09 PM CDT): Goal blood pressure is less than 140/85 Low salt diet recommended Daily aerobic exercise Continue current meds, including INDU-I or ARB Consider adding a third agent Type 1 diabetes mellitus with hyperglycemia 02/08 Overview (08/01/2020): Managed by Endocrinology Assessment & Plan (12/18/2024 4:11 PM CDT): Chronic problem. Not at goal but increased from 7.5% 05/15/24 to now 7.8%. Pump setting changes: -change from 9am to 10a & increased from 1.15 to 1.25 units/hr. Current medications: Humalog via Medtronic 780G insulin pump BR: 12a 0.575, 4a 0.650, 7a 0.75, 10a 1.25, 3p 0.975, 11p 0.650 CR 7.8 CF 30 Target 110 AIT 2 hours Discussed: Carb intake/carb counting: Small amount=30gm, medium amount=45gm, large amount=60gm. Bolus BEFORE eating meals. UTD on labs. UTD on eye exam (09/05/24 No MARIANN Partida) Strive for regular exercise (30min most days) and diet (get at least 4-5 servings of fruit and veggies daily, avoid processed foods, increase lean protein intake and decrease carb portions as well as fruit juices, regular soda & desserts). Watch carbs and simple sugars. Check the feet daily for skin breakdown and infection. Assessment & Plan (05/15/2024 10:51 AM CDT): Chronic problem. Not at goal but improved from 8.3% 01/11/24 to now 7.5%. Decreased active insulin time from 3 hours to 2 hours: Current medications: Humalog via Medtronic 780G insulin pump BR: 12a 0.575, 4a 0.650, 7a 0.75, 9a 1.15, 3p 0.975, 11p 0.650 CR 7.8 CF 30 Target 110 AIT 2 hours Discussed: Carb intake/carb counting: Small amount=30gm, medium amount=45gm, large amount=60gm. Bolus BEFORE eating meals. Will update MA/Cr today. Verified that he uses [employer]. Aware to check results/results letter in [employer]. Will contact by phone if needed. Due for yearly DM eye exam. Strive for regular exercise (30min most days) and diet (get at least 4-5 servings of fruit and veggies daily, avoid processed foods, increase lean protein intake and decrease carb portions as well as fruit juices, regular soda & desserts). Watch carbs and simple sugars. Check the feet daily for skin breakdown and infection. Assessment & Plan (01/11/2024 3:46 PM CDT): Hba1c was Lab Results Component Value Date HGBA1C 8.3 01/11/2024 today, indicating suboptimal DM control Goal Hba1c under 7 and blood glucose level in the 120-160 range was explained Low carb diet and daily aerobic and /or resistant exercise were advised Prevention and treatment of hyypoglcyemia were discussed with the patient Blood glucose monitoring : Continue CGM with freestyle Hima Adjustment to medications: Continue pump at current settings Will contact [employer] to train patient on the new 780 pump Assessment & Plan (08/10/2023 12:34 PM CDT): A1c not yet at goal, followed by endocrinology. Cont Novolog. Assessment & Plan (07/12/2023 11:31 AM CDT): Chronic problem. Not at goal. A1c worsened from 8.4% 12/2022 to now 9.2%. Persistently elevated blood sugars. Below are basal rate changes: BR: 12a changed from 0.475 to 0.575, 4a 0.650, 7a changed from 0.725 to 0.75, added 9am 1.15, 3p changed from 0.875 to 0.975, 11p stayed same at 0.650 Current medications: Novolog via medtronic 670G pump BR: 12a 0.575, 4a 0.65 7a 0.75, 9a 1.15, 3p 0.975 11p 0.65 CR 8 CF 30 Target 110 Discussed: Carb intake/carb counting: Small amount=30gm, medium amount=45gm, large amount=60gm. Bolus BEFORE eating meals. Will update MA/Cr today. Verified that he uses [employer]. Aware to check results/results letter in [employer]. Will contact by phone if needed. Due for yearly DM eye exam. UTD on labs Strive for regular exercise (30min most days) and diet (get at least 4-5 servings of fruit and veggies daily, avoid processed foods, increase lean protein intake and decrease carb portions as well as fruit juices, regular soda & desserts). Watch carbs and simple sugars. Check the feet daily for skin breakdown and infection. Assessment & Plan (04/06/2023 10:36 AM CDT): Chronic problem. Not at goal. A1c improved from 8.6% 12/2022 to now 8.4%. Pump setting changes to basal rates at 10am (increased from 0.90 to 1.0) & 3p (increased from 0.775 to now 0.875) Current medications: Novolog via medtronic 670G pump BR: 12a 0.475, 4a 0.650, 7a 0.725, 10a 1.0, 3p 0.875, 11p 0.650 CR 8 CF 30 Target 110 Discussed: Carb intake/carb counting: Small amount=30gm, medium amount=45gm, large amount=60gm. Bolus BEFORE eating meals. Will update MA/Cr today. Verified that he uses [employer]. Aware to check results/results letter in [employer]. Will contact by phone if needed. UTD on DM eye exam. Strive for regular exercise (30min most days) and diet (get at least 4-5 servings of fruit and veggies daily, avoid processed foods, increase lean protein intake and decrease carb portions as well as fruit juices, regular soda & desserts). Watch carbs and simple sugars. Check the feet daily for skin breakdown and infection. Assessment & Plan (12/24/2022 1:09 PM CDT): Hba1c was Lab Results Component Value Date HGBA1C 8.6 12/24/2022 today, indicating suboptimal DM control, with both hyper and hypoglycemia Goal Hba1c and blood glucose explained Diet and exercise were advised Prevention and treatment of hyypoglcyemia were discussed with the patient Blood glucose monitoring : Continue with freestyle Adjustment to medications: Pump settings adjusted, increasing insulin to carb ratio to 8 and sensitivity factor to 30 Continue basal rates Need to bolus with each meal was emphasized to him and his Will try to get him on the guardian CGM with the 670 G pump Assessment & Plan (09/17/2022 5:04 PM QUALITY CONTROLLER): Hba1c was Lab Results Component Value Date HGBA1C 8.3 09/17/2022 today, indicating suboptimal DM control Goal Hba1c and blood glucose explained Diet and exercise were advised Prevention and treatment of hyypoglcyemia were discussed with the patient Blood glucose monitoring : CGM with freestyle Hima Adjustment to medications: Pump settings have been adjusted I advised the patient to bolus with each meal. He can pre bolus according with blood glucose reading and then to bolus after he eats, immediately after, putting on his carb. Assessment & Plan (08/05/2022 11:17 AM CDT): A1c is near goal of less than 8.0. Managed by endocrinology. Continue current prescription medications. Assessment & Plan (05/28/2022 2:59 PM CDT): Hba1c was Lab Results Component Value Date HGBA1C 8.1 05/28/2022 today, indicating inadequate DM control Goal Hba1c and blood glucose explained Diet and exercise were advised Prevention and treatment of hyypoglcyemia were discussed with the patient Blood glucose monitoring : FSL Adjustment to medications: Pump settings adjusted as follows : New insulin pump settings : 12a 0.475 4a 0.650 7a 0.725 10a 0.9 3p 0.775 11p 0.650 IC 7.0 isf 30 tg 110-120 ait 430 Assessment & Plan (02/26/2022 2:44 PM CDT): Hba1c was Lab Results Component Value Date HGBA1C 7.6 02/26/2022 today, indicating adequate DM control Goal Hba1c and blood glucose explained Diet and exercise were advised Prevention and treatment of hyypoglcyemia were discussed with the patient Blood glucose monitoring : Continue CGM with FSL Adjustment to medications: Continue pump at current settings. Assessment & Plan (11/27/2021 12:12 PM QUALITY CONTROLLER): Hba1c was Lab Results Component Value Date HGBA1C 7.5 11/27/2021 today, indicating acceptable DM control Goal Hba1c and blood glucose explained Diet and exercise were advised Prevention and treatment of hyypoglcyemia were discussed with the patient Blood glucose monitoring : FSL Adjustment to medications: continue pump at current settings. Assessment & Plan (08/21/2021 2:25 PM QUALITY CONTROLLER): Hba1c was Lab Results Component Value Date HGBA1C 8.1 08/21/2021 today, indicating suboptimal DM control Goal blood glucose levels : 110-150 Target Hba1c : 7-7.5 BG monitoring : FSL Prevention and treatment of hyypoglcyemia discussed. Insulin regimen adjustments: Continue pump at current settings. Assessment & Plan (08/04/2021 6:20 PM CDT): A1c at goal of < 8.0. Cont current Rx meds. Assessment & Plan (05/09/2021 11:56 AM CDT): A1c at goal of less than 8.0. Continue current management. Followed by Endocrinology. Assessment & Plan (05/01/2021 3:26 PM CDT): A1c 7.2. Doing well with current settings. Continue focus on diet. 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 Continue current management. Assessment & Plan (01/30/2021 2:28 PM CDT): Hba1c was Lab Results Component Value Date HGBA1C 8.1 01/30/2021 today, indicating inadequate DM control Goal blood sugars in the 120-150 range , with Hb1c under 7.0 % was explained 1800 calorie, consistent carb diet recommended. No more than 30-45 grams of carbs per meal recommended, as well as avoiding high concentrated sweet drinks . 25-45 min daily exercise, combining both aerobic and resistance exercise recommended. The need to monitor blood glucose before meals and bedtime was discussed. Prevention and treatment of hyypoglcyemia discussed. Pump settings adjusted: Settings: Basal rates: 12a 0.6 4a 0.725 7a 0.8 10a 0.950 3p 0.775 11p 0.7 IC 6.5 S 25 T 110-110 Assessment & Plan (12/02/2020 1:38 PM QUALITY CONTROLLER): Increased ac insulin per endo recs Assessment & Plan (12/02/2020 1:31 PM QUALITY CONTROLLER): Glucoses within a reasonable margin of safety. He is likely going home today, has an insulin pump with CGM so should be able to resume the pump following discharge. His settings will provide a little more mealtime insulin than his current dosing, which will be ideal. Recommendations (discharge): Resume insulin pump settings: Medtronic 670 and sensor. Basal MN 0.600, 0400 0.725, 0700 0.800, 10 am 0.95, 3 pm 0.7, 11 pm 0.7. TD 18.025 IC ratio 1: 7, Sens Factor 1:30. Target BG 100-110, AIT 4 Assessment & Plan (12/01/2020 2:13 PM QUALITY CONTROLLER): Increased ac insulin per endo recs Assessment & Plan (10/25/2020 9:32 AM QUALITY CONTROLLER): A1c 7.4. But with some reported hypoglycemia. Will lower basal rates MN-10 am. Will have Medtronic sap trainer set patient up on automode. Assessment & Plan (08/01/2020 9:07 PM CDT): Managed by endocrinology. Assessment & Plan (07/12/2020 11:53 AM CDT): A1c 8.0. Elevated BG mostly in the evening pc. Will adjust IC. Encouraged to wear sensor. We can retrain if needed. Assessment & Plan (04/04/2020 10:08 AM CDT): Hba1c was Lab Results Component Value Date HGBA1C 8.1 04/04/2020 today, indicating ... DM control 1800 calorie, consistent carb diet recommended. No more than 30-45 grams of carbs per meal recommended, as well as avoiding high concentrated sweet drinks . 25-45 min daily exercise, combining both aerobic and resistance exercise recommended. The need to monitor blood glucose before meals and bedtime was discussed. Prevention and treatment of hyypoglcyemia discussed. Insulin dose: Pump settings adjusted Need to bolus with each meal, using carb intake and BG readings was discussed Bib + Tucke reset. Assessment & Plan (12/28/2019 11:17 AM CDT): A1c worsening at 8.7. After assessing pt familiarity with pump/sensor combo, d/t memory issues, do not recommend that he enter into automode without another 1:1 training with rep to address all concerns. Will increase basal rate later in day to address elevated pattern. Sick day rules reviewed. Assessment & Plan (09/14/2019 12:15 PM QUALITY CONTROLLER): Hba1c was Lab Results Component Value Date HGBA1C 7.8 09/14/2019 today, indicating Sub-optimal DM control 1800 calorie, consistent carb diet recommended. No more than 30-45 grams of carbs per meal recommended, as well as avoiding high concentrated sweet drinks . 25-45 min daily exercise, combining both aerobic and resistance exercise recommended. The need to monitor blood glucose before meals and bedtime was discussed. Prevention and treatment of hyypoglcyemia discussed. Insulin dose: Pump settings adjusted as follows Basal rates: 12:00 a.m. 0.625, 4:00 a.m. 0.750, 10:00 a.m. 0.9, 3:00 p.m. 0.625, 11:00 p.m. 0.675 Insulin to carb ratio 7. Sensitivity factor of 30. Target glucose of 110 Assessment & Plan (05/23/2019 9:41 AM CDT): Hba1c was Lab Results Component Value Date HGBA1C 7.7 05/23/2019 today, indicating 170 DM control 1800 calorie, consistent carb diet recommended 25-45 min daily exercise, combining both aerobic and resistance exercise recommended. The need to monitor blood glucose before meals and bedtime was discussed. Dose of basal and prandial insulin adjusted as follows: continue pump at current settings. Prevention and treatment of hyypoglcyemia discussed. Assessment & Plan (02/21/2019 10:21 AM CDT): Hba1c was Lab Results Component Value Date HGBA1C 8.7 02/21/2019 today, indicating poor DM control 1800 calorie, consistent carb diet recommended 25-45 min daily exercise, combining both aerobic and resistance exercise recommended. The need to monitor blood glucose before meals and bedtime was discussed. Dose of basal and prandial insulin adjusted as follows: Continue pump at current settings Patient to work on diet. Prevention and treatment of hyypoglcyemia discussed. Will request DEXCOM Assessment & Plan (11/27/2018 2:50 PM QUALITY CONTROLLER): A1c 7.6. On vacation recently and BG a bit higher. BG goals reviewed. He will adjust settings as indicated now that home and more attentive to diet. Assessment & Plan (08/04/2018 9:35 AM CDT): Hba1c was Lab Results Component Value Date HGBA1C 7.2 08/04/2018 today, indicating adequate DM control 1800 calorie, consistent carb diet recommended 30 min daily exercise, combining both aerobic and resistance exercise is strongly recommended and needed as part of diabetes management plan. The need to monitor blood glucose before meals and bedtime was discussed. Take prandial insulin before meals based on carb intake and blood glucose readings. Prevention and treatment of hyypoglcyemia discussed. Assessment & Plan (05/05/2018 9:53 AM CDT): Your Hba1c today was: Lab Results Component Value Date HGBA1C 8.3 (H) 04/21/2018 meaning a 3 month average sugar of : 190 Your goal hba1c is under 7.0 to prevent intermediate designer diabetes complications ( eye , kidney and nerve damage ) . Your goal sugars are in the 90-130 range Daily aerobic ( walking, riding a bike, swimming ) and resistance exercises ( light weight lifting, resistance band stretching ) for at least 30 minutes is recommended If you can not walk, chair exercises is very acceptable. As little as 15-20 minutes exercise , in one or two sessions a day, is still very helpful and will help to improve your diabetes control . Eat small portion meals, no more than 1800 calories Diet Try to eat not more than than 2-3 servings of carbs ( starches ) wiith your meals. Avoid soft drinks, including regular sodas , fruit juices and sweetened tea. Drink water instead. Eat plenty of green and leafy vegetables, including salads. Take your medications regularly,including your insulin injections. Monitor your sugar levels with finger sticks regularly and keep a log sheet or book. Bring your sugar meter and /or a log book or log sheet to every office visit. Basal rates adjusted; 12a 0.9, 5a 0.65,1p 0.75 , 6p 0.825 IC 7, S 30 Assessment & Plan (01/16/2018 3:09 PM CDT): A1c 7.6. Stable. No change. Has good grasp of how to manage his DM. Assessment & Plan (09/23/2017 9:23 AM QUALITY CONTROLLER): Last Hba1c was 7.6 today, indicating suboptimal DM control 1800 calorie, consistent carb diet recommended 30 min daily exercise, combining both aerobic and resistance exercise is strongly recommended and needed as part of diabetes management plan. The need to monitor blood glucose before meals and bedtime was discussed. Take prandial insulin before meals based on carb intake and blood glucose readings. Prevention and treatment of hyypoglcyemia discussed. Add 2 units of insulin to each bolus. Assessment & Plan (06/29/2017 1:34 PM CDT): Hba1c was 7.7 today, indicating suboptimal DM control 1800 calorie, consistent carb diet recommended 30 min daily exercise, combining both aerobic and resistance exercise is strongly recommended and needed as part of diabetes management plan. The need to monitor blood glucose before meals and bedtime was discussed. Take prandial insulin before meals based on carb intake and blood glucose readings. Prevention and treatment of hyypoglcyemia discussed. . Resolved Problems Problem Noted Date Diagnosed Date Resolved Date Hypertension associated with stage 2 chronic kidney disease due to type 2 diabetes mellitus 07/12/2023 08/10/2023 Assessment & Plan (07/12/2023 11:37 AM CDT): Chronic problem. Controlled on current spironolactone 25mg daily. Managed by Dr Carranza. Sees her q6 mos. Orthostatic dizziness 02/17/20232022 Assessment & Plan (02/17/2023 12:03 PM CDT): Suspect that he has mild dehydration, encouraged patient to try to get to a total of 64 ounces of fluids daily. Please discuss recent bp measurements from today's office visit with your mast maker, in case some adjustments need to be made with your current dose of bp medications. Traumatic hematoma of right upper arm 11/29/2020 05/09/2021 Assessment & Plan (12/02/2020 1:39 PM QUALITY CONTROLLER): secondary to fall, Humerus Xray neg fracture - q4 neurovasc checks, call vascular if c/f hematoma/compartment syndrome - Had bilateral UE dopplers - neg for DVT -1 unit prbc on 11/30 - 12/01: circumference of R arm is decreasing - hgb stable Assessment & Plan (12/01/2020 2:16 PM QUALITY CONTROLLER): secondary to fall, Humerus Xray neg fracture - q4 neurovasc checks, call vascular if c/f hematoma/compartment syndrome - Had bilateral UE dopplers - neg for DVT -1 unit prbc on 11/30 - 12/01: circumference of R arm is decreasing Dementia 11/29/2020 05/09/2021 Assessment & Plan (12/02/2020 1:39 PM QUALITY CONTROLLER): Follow up in the memory clinic Assessment & Plan (11/29/2020 8:19 PM QUALITY CONTROLLER): A&Ox3. Has occasional hallucinations. 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 Assessment & Plan (08/01/2020 9:07 PM CDT): Managed by neurology. Assessment & Plan (07/31/2019 9:23 AM CDT): Referred to Neurology for further eval/mgmt. Recent MRI showed: IMPRESSION: 1. NO ACUTE INTRACRANIAL ABNORMALITY. 2. MINOR SMALL VESSEL MICROVASCULAR ISCHEMIC DISEASE. 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 Assessment & Plan (10/25/2020 9:33 AM QUALITY CONTROLLER): Reduce Mn basal to 0.6, 0400 to 0.725, 0700 to 0.8 = new TDB 18.025 Assessment & Plan (07/12/2020 11:54 AM CDT): Lower IC to 6.5. Assessment & Plan (12/28/2019 11:07 AM CDT): Increase basal from 3 pm to MN to 0.7. Assessment & Plan (09/14/2019 12:16 PM QUALITY CONTROLLER): Have long acting , basal insulin ( e.g. Lantus, Levemir, NPH, ) and insulin syringes as back up in case of pump failure If you have to take your insulin pump off for more than 12 h, start taking basal insulin, every 24 h ( take 80 % of the 24 h insulin delivered to you via insulin pump as calculated based on your basal rates ) and inject meal time insulin by injections, calculating the same way you do with your pump bolus ( according with carb intake and blood sugar readings ) Assessment & Plan (05/23/2019 9:40 AM CDT): Have long acting , basal insulin ( e.g. Lantus, Levemir, NPH, ) and insulin syringes as back up in case of pump failure If you have to take your insulin pump off for more than 12 h, start taking basal insulin, every 24 h ( take 80 % of the 24 h insulin delivered to you via insulin pump as calculated based on your basal rates ) and inject meal time insulin by injections, calculating the same way you do with your pump bolus ( according with carb intake and blood sugar readings ) Assessment & Plan (11/27/2018 2:48 PM QUALITY CONTROLLER): No change. Is adept at adjusting settings. Advised be accurate with carb counting Assessment & Plan (08/04/2018 9:36 AM CDT): Have long acting , basal insulin ( e.g. Lantus, Levemir, NPH, ) and insulin syringes as back up in case of pump failure If you have to take your insulin pump off for more than 12 h, start taking basal insulin, every 24 h ( take 80 % of the 24 h insulin delivered to you via insulin pump as calculated based on your basal rates ) and inject meal time insulin by injections, calculating the same way you do with your pump bolus ( according with carb intake and blood sugar readings ) Assessment & Plan (05/05/2018 9:53 AM CDT): Have long acting , basal insulin ( e.g. Lantus, Levemir, NPH, ) and insulin syringes as back up in case of pump failure If you have to take your insulin pump off for more than 12 h, start taking basal insulin, every 24 h ( take 80 % of the 24 h insulin delivered to you via insulin pump as calculated based on your basal rates ) and inject meal time insulin by injections, calculating the same way you do with your pump bolus ( according with carb intake and blood sugar readings ) Assessment & Plan (01/16/2018 3:10 PM CDT): No change to pump settings. He has good understanding of how to manage pump. Assessment & Plan (09/23/2017 9:23 AM QUALITY CONTROLLER): Have long acting , basal insulin ( e.g. Lantus, Levemir, NPH, ) and insulin syringes as back up in case of pump failure If you have to take your insulin pump off for more than 12 h, start taking basal insulin, every 24 h ( take 80 % of the 24 h insulin delivered to you via insulin pump as calculated based on your basal rates ) and inject meal time insulin by injections, calculating the same way you do with your pump bolus ( according with carb intake and blood sugar readings ) Assessment & Plan (06/29/2017 3:08 PM CDT): Have long acting , basal insulin ( e.g. Lantus, Levemir, NPH, ) and insulin syringes as back up in case of pump failure If you have to take your insulin pump off for more than 12 h, start taking basal insulin, every 24 h ( take 80 % of the 24 h insulin delivered to you via insulin pump as calculated based on your basal rates ) and inject meal time insulin by injections, calculating the same way you do with your pump bolus ( according with carb intake and blood sugar readings ) Hypertension 02/24/2014 03/02/2018 Overview (01/14/2017): HYPERTENSION NOS Assessment & Plan (01/16/2018 3:09 PM CDT): Controlled on current medications. Type 2 diabetes mellitus 02/24/2014 Overview (01/14/2017): DMII WO CMP NT ST UNCNTR Immunizations Immunization Administration Dates Next Due Influenza, Quadrivalent, Hig h Dose, Preservative Free, Intrr 08/03/2023,07/15/2022 Influenza, Quadrivalent, Spl it, Intramuscular 07/10/2015 Influenza, Quadrivalent, Spl it, Preservative Free, Intramuscular 07/03/2020 Influenza, Trivalent, High D ose, Split, Preservative Free, Intramuscular 08/16/2024,07/31/2019,07/12/2018,07/11,07/15/2016 Influenza, Trivalent, IM (MDV) 07/04/2014 Influenza, Trivalent, Preser vative Free, Intramuscular 09/07/2012 Influenza, Unspecified 07/26/2021,08/19/2020 Moderna SARS-CoV-2 Monovalen t Vaccination (12+ YRS) 12/17/2020,11/14/2020 Pneumococcal Conjugate PCV 13 08/09/2017 Pneumococcal Polysaccharide PPV23 06/30/2010 Sars-cov-2 Covid-19 Mrna, Bi valent, Original/omicron Ba.1 08/03/2023 TD Preservative Free 11/03/2006 Tdap 11/09/2018 ZOSTER Recombinant 08/19/2020,05/14/2020 Social History Tobacco Use Types Packs/Day Years Used Date Smoking Tobacco: Never Smokeless Tobacco: Never Alcohol Use Standard Drinks/Week Comments No 0 (1 standard drink = 0.6 oz pur e alcohol) Social Connection and Isolat ion Panel [NHANES] Answer Date Recorded In a typical week, how many times do you talk on the phone with family, friends, or neighbors? More than three times a week 12/03/2020 How often do you get togethe r with friends or relatives? Once a week 12/03/2020 How often do you attend [facility] or uatsdin services? More than 4 times per year 12/03/2020 Do you belong to any clubs o r organizations such as cheondoism groups, unions, fraternal or athletic groups, or school groups? Yes 12/03/2020 How often do you attend meet ings of the clubs or organizations you belong to? More than 4 times per year 12/03/2020 Are you , , di vorced, , never , or living with a partner? 12/03/2020 AUDIT-C Answer Date Recorded Q1: How often do you have a drink containing alcohol? Never 04/10/2024 Q2: How many drinks containi ng alcohol do you have on a typical day when you are drinking? Patient does not drink Q3: How often do you have si x or more drinks on one occasion? Never 04/10/2024 Overall Financial Resource Strain (CARDIA) Answe r Date Recorded How hard is it for you to pa y for the very basics like food, housing, medical care, and heating? Not hard at all 12/03/2020 PHQ-2 Answer Date Recorded PHQ-2 Total Score (If total score is 3 or more points, staff should administer the PHQ-9) 0 08/16/2024 PRAPARE - Transportation Answer Date Re corded In the past 12 months, has l ack of transportation kept you from medical appointments or from getting medications? No 11/12 In the past 12 months, has l ack of transportation kept you from meetings, work, or from getting things needed for daily living? No 12/03/2020 Housing Stability Vital Sign Answer Yordy e Recorded In the last 12 months, was t here a time when you were not able to pay the mortgage or rent on time? No 12/03/2020 In the last 12 months, how many places have you lived? 1 12/03/2020 In the last 12 months, was t here a time when you did not have a steady place to sleep or slept in a group home (including now)? No 12/03/2020 Personal Safety Answer Date Recorded Have you ever been in or are you currently in a harmful physical or emotional relationship or is someone making you feel afraid or unsafe? 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 on file Not on file Not o n file Last Filed Vital Signs Vital Sign Reading Time Taken Comments Blood Pressure 120/56 01/11/2025 11:57 AM CDT Pulse 57 01/11/2025 11:57 AM CDT Temperature 36 C (96.8 F) 01/11/2025 11:57 AM CDT Respiratory Rate 16 01/11/2025 11:57 AM CDT Oxygen Saturation 97% 01/11/2025 11:57 AM CDT Inhaled Oxygen Concentration - - Weight 78.3 kg (172 lb 9.9 oz) 01/11/2025 8:33 A M CDT Height 170.2 cm (5' 7 ) 01/11/2025 8:33 AM CDT Body Mass Index 27.04 01/11/2025 8:33 AM CDT Plan of Treatment Not on file Procedures Procedure Name Priority Date/Time Associated Diagnosis Comments POCT GLUCOSE DEVICE Routine 01/11/2025 1 0:28 AM CDT URONAV GUIDED PROSTATE BIOPSY 01/11/2025 9:56 AM CDT Elevated prostate specific antigen (PSA) ECG 12-LEAD Routine 01/11/2025 9:08 AM CDT POTASSIUM, WHOLE BLOOD STAT 01/11/2025 9:04 AM CDT POCT GLUCOSE DEVICE Routine 01/11/2025 8 :57 AM CDT SURGICAL PATHOLOGY Routine 01/11/2025 8: 35 AM CDT Elevated prostate specific antigen (PSA) POCT GLUCOSE Routine 12/18/2024 2:58 PM CDT Type 1 diabetes mellitus with hyperglycemia (HCC) POCT HEMOGLOBIN A1C Routine 12/18/2024 2 :58 PM CDT Type 1 diabetes mellitus with hyperglycemia (HCC) HM DIABETES EYE EXAM Routine 09/05/2024 8:53 AM QUALITY CONTROLLER EGFR Routine 08/16/2024 9:00 AM QUALITY CONTROLLER Hypertension associated with type 1 diabetes mellitus (HCC) LIPID PANEL Routine 08/16/2024 9:00 AM QUALITY CONTROLLER Hypertension associated with type 1 diabetes mellitus (HCC) THYROID FUNCTION CASCADE Routine 08/16/2024 9:00 AM QUALITY CONTROLLER Hypertension associated with type 1 diabetes mellitus (HCC) PSA DIAGNOSTIC Routine 08/16/2024 9:00 AM QUALITY CONTROLLER Benign prostatic hyperplasia with nocturia ALBUMIN CREATININE RATIO, URINE Routine 05/15/2024 11:06 AM CDT Type 1 diabetes mellitus with hyperglycemia (HCC) DIABETES FOOT EXAM Routine 11/27/2019 from Last 3 Months or Most Recently Relevant to Health Maintenance Results * POCT glucose (01/11/2025 10:28 AM CDT) Glucose, POC 125 70 - 199 mg/dL Blood 01/11/2025 10:2 8 AM CDT 01/11/2025 10:28 AM CDT Tony Alcantara MD LAB POCT ORDERABLES - DEVICE Final Result Performing Organization Address [facility] Co de Phone Number [facility] 1 [facility] Department of Laboratories [place] [phone] * ECG 12 lead (01/11/2025 9:08 AM CDT) 01/11/2025 9:08 AM CDT Narrative [facility] - 01/11/2025 10:28 AM CDT Vent Rate: 60 bpm RR Interval: 996 msec GA Interval: 137 msec QRS Duration: 81 msec QT Interval: 409 msec QTC Interval: 409 msec P-R-T [place]: 55 - -38 - 30 degrees IMPRESSION: SINUS RHYTHM MARKED LEFT AXIS DEVIATION [QRS AXIS < -30] MODERATE VOLTAGE CRITERIA FOR LVH, CONSIDER NORMAL VARIANT [MEETS CRITERIA IN ONE OF: R(aVL), S(V1), R(V5), R(V5/V6)+S(V1)] ABNORMAL ECG Compared to prior EKG, heart rate has decreased Electronically Signed By: Carlos Alvarado MD Erin Shaffer MD ECG ORDERABLES Final Re sult Performing Organization Address [place]/[facility] Co de Phone Number [facility] * Potassium, whole blood (01/11/2025 9:04 AM CDT) Potassium, bld 4.1 3.3 - 4.9 mmol/L Comment: Interpretive Data This method is not able to assess for hemolysis, which may falsely increase potassium concentrations. If further testing is needed to evaluate this result, consider in-laboratory plasma potassium. Current Interpretive Data was last revised on 2022. Blood 01/11/2025 9:04 AM CDT 01/11/2025 9:06 AM CDT Erin Shaffer MD LAB BLOOD ORDERABLES Fin al Result ALAN TOSCANO ([place]) 1 [facility] [email or web address] [address] * POCT glucose (01/11/2025 8:57 AM CDT) [facility] Gl[facility] 117 70 - 199 mg/dL Blood 01/11/2025 8:57 AM CDT 01/11/2025 8:57 AM CDT Tony Alcantara MD LAB POCT ORDERABLES - DEVICE Final Result Performing Organization Address City/[facility] Co de Phone Number ALAN TOSCANO ([place]) [address] [place] [address] [email or web address] [address] * Surgical pathology (01/11/2025 8:35 AM CDT) Tissue (Prostate, Needle Biopsy) 01/11/2025 9:39 AM CDT Tissue specimen (specimen) (Prostate, Needle Biopsy) 01/11/2025 9:39 AM CDT Tissue specimen (specimen) (Prostate, Needle Biopsy) 01/11/2025 9:39 AM CDT Tissue specimen (specimen) (Prostate, Needle Biopsy) 01/11/2025 9:39 AM CDT Tissue specimen (specimen) (Prostate, Needle Biopsy) 01/11/2025 9:39 AM CDT Tissue specimen (specimen) (Prostate, Needle Biopsy) 01/11/2025 9:39 AM CDT Tissue specimen (specimen) (Prostate, Needle Biopsy) 01/11/2025 9:39 AM CDT Tissue specimen (specimen) (Prostate, Needle Biopsy) 01/11/2025 9:39 AM CDT Tissue specimen (specimen) (Prostate, Needle Biopsy) 01/11/2025 9:39 AM CDT Tissue specimen (specimen) (Prostate, Needle Biopsy) 01/11/2025 9:39 AM CDT Tissue specimen (specimen) (Prostate, Needle Biopsy) 01/11/2025 9:39 AM CDT Tissue specimen (specimen) (Prostate, Needle Biopsy) 01/11/2025 9:39 AM CDT Tissue specimen (specimen) (Prostate, Needle Biopsy) 01/11/2025 9:42 AM CDT Narrative PATHOLOGY [facility] ([place]) - 01/16/2025 12:24 PM CDT EPIC results best viewed via link to PDF [facility] Department of Pathology [address] [place] [address] Note to Patients: This report may contain a detailed description of human tissue sent by a health care provider to the laboratory for pathologic evaluation. The content of this report is essential for diagnosis and may provide important critical findings. This information may be unfamiliar to patients to review without a medical professional present. It is advised that the patient review this report in the presence of a health care provider who can answer questions and explain the details. Final Report with Addendum Patient Name: MICK BARON Address: [address] [place] [address] Gender: M : 1945 (Age: 79) Service: Surgery Location: [facility] Hospital #: [id number] Patient Type: [facility] Taken: 01/11/2025 Received: 01/12/2025 Accessioned: 01/12/2025 Reported: 01/16/2025 Physician(s):Tony Alcantara M.D. Diagnosis: A. 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 Prostate, right medial base, needle biopsy- Benign prostate tissue C. Prostate, right lateral mid, needle biopsy- Prostatic acinar adenocarcinoma, pending IHC D. Prostate, right medial mid, needle biopsy- Benign prostate tissue E. Prostate, right lateral apex, needle biopsy- Prostatic acinar adenocarcinoma, pending IHC F. Prostate, right medial apex, needle biopsy- Benign prostate tissue G. Prostate, left lateral base, needle biopsy- Benign prostate tissue H. Prostate, left medial base, needle biopsy- Benign prostate tissue I. Prostate, left lateral mid, needle biopsy- Benign prostate tissue J. Prostate, left medial mid, needle biopsy- Benign prostate tissue K prostate, left lateral apex, needle biopsy- Benign prostate tissue L. Prostate, left medial apex, needle biopsy- Benign prostate tissue M. Prostate, region of interest , needle biopsy- Prostatic acinar adenocarcinoma, pending IHC Joslyn Dotson M.D. Report Electronically Reviewed and Signed Out By Joslyn Dotson M.D. 01/16/2025 12:24:38 Procedure/Addenda: Addendum Addendum Diagnosis C. Prostate, right lateral mid, needle biopsy- Prostatic acinar adenocarcinoma, Bee Branch 4 + 3 = 7, grade group 3 Tumor involves 13 of 13 mm, cribriform architecture present Grade 4 Involves approximately 85% total tumor volume E. Prostate, right lateral apex, needle biopsy- Prostatic acinar adenocarcinoma, Bee Branch grade 4+3=7, grade group 3 Tumor involves 15 of 18 mm; grade 4 involves approximately 70 % tumor volume M. Prostate, region of interest , needle biopsy- Prostatic acinar adenocarcinoma, 4+4=8, grade group 4 Tumor invades 3 of 4 cores, 32 of 56 mm, cribriform architecture present Addendum Comment PIN4 IHC cocktail with appropriate control also reviewed is performed on blocks C, E and M highlighting the distribution and architecture of the invasive adenocarcinoma. Joslyn Dotson M.D.Report Electronically Reviewed and Signed Out By Joslyn Dotson M.D. 01/19/2025 12:29:45 Specimen(s) Received: A: Right lateral base B: Right medial base C: Right lateral mid D: Right medial mid E: Right lateral apex F: Right medial apex G: Left lateral base H: Left medial base I: Left lateral mid J: Left medial mid K: Left lateral apex L: Left medial apex M: Prostate biopsy region of interest Microscopic Description: Microscopic examination corroborates the diagnosis. Clinical History: Elevated prostate specific antigen. Uronav guided prostate biopsy. Gross Description: The specimen is submitted in thirteen containers labeled MICK BARON . A. The first container is labeled right lateral base . It is 1 core of braun tissue measuring 1. cm. Entirely in A. B. The second container is labeled right medial base . It is 1 core of braun tissue measuring 1.4 cm. Entirely in B. C. The third container is labeled right lateral mid . It is 1 core of braun tissue measuring 1.3 cm. Entirely in C. D. The fourth container is labeled right medial mid . It is 1 core of braun tissue measuring 1.6 cm. Entirely in D. E. The fifth container is labeled right lateral apex . It is 1 core of braun tissue measuring 1.8 cm. Entirely in E. F. The sixth container is labeled right medial apex . It is 1 core of braun tissue measuring 1.2 cm. Entirely in F. G. The seventh container is labeled left lateral base . It is 1 core of braun tissue measuring 1.7 cm. Entirely in G. H. The eighth container is labeled left medial base . It is 1 core of braun tissue measuring 1.7 cm. Entirely in H. I. The ninth container is labeled left lateral mid . It is 1 core of braun tissue measuring 1.9 cm. Entirely in I. J. The tenth container is labeled left medial mid . It is 1 core of braun tissue measuring 1.8 cm. Entirely in J. K. The eleventh container is labeled left lateral apex . It is 1 core of braun tissue measuring 1.4 cm. Entirely in K. L. The twelfth container is labeled left medial apex . It is 1 core of braun tissue measuring 1.6 cm. Entirely in L. M. The thirteenth container is labeled prostate biopsy region of interest . It is 4 cores of braun tissue between 0.8 and 2.3 cm. Entirely in M. T.A. Jam Calvillo[employer] P.A./Loy Martinez M.D. REPORT IMAGES AND SCANNED DOCUMENTS, IF INCLUDED, ONLY VIEWABLE IN PDF VERSION OF REPORT The performance characteristics of some immunohistochemical stains, fluorescence in-situ hybridization tests and immunophenotyping by flow cytometry cited in this report (if any) were determined by the Surgical Pathology Department at [facility] as part of an ongoing construction quality control manager program and in compliance with federally mandated regulations drawn from the Clinical Laboratory Improvement Act of 1988 (CLIA '88). Some of these tests rely on the use of analyte specific reagents and are subject to specific labeling requirements by the US Food and Drug Administration. Such diagnostic tests may only be performed in a facility that is certified by the Department of Health and Human Services as a high complexity laboratory under CLIA '88. The FDA has determined that such clearance or approval is not necessary. This test is used for clinical purposes. It should not be regarded as investigational or for research. Nevertheless, federal rules concerning the medical use of analyte specific reagents require that the following disclaimer be attached to the report: This test was developed and its performance characteristics determined by the Surgical Pathology Department [facility]. It has not been cleared or approved by the U. S. Food and Drug Administration. Note for decalcified specimens: This assay has not been validated on decalcified tissues. Results should be interpreted with caution given the possibility of false negativity on decalcified specimens us Tony Alcantara MD LAB PATHOLOGY ORDERA BLES Final Result Performing Organization Address City/State/[facility] Co de Phone Number PATHOLOGY [address] [address] * (ABNORMAL) POCT hemoglobin A1c (12/18/2024 2:58 PM CDT) Hemoglobin A1C, POC 7.8 4.0 - 5.6 % Blood 12/18/2024 2:58 PM CDT us Lawanda Belcher NP POINT OF CARE TEST ORDERA BLES Final Result * (ABNORMAL) POCT glucose (12/18/2024 2:58 PM CDT) Glucose Blood, POC 364 mg/dL Blood 12/18/2024 2:58 PM CDT us Lawanda Belcher NP POINT OF CARE TEST ORDERA BLES Final Result * HM DIABETES EYE EXAM (09/05/2024 8:53 AM QUALITY CONTROLLER) us Li Bruner MD HEALTH MAINTENANCE Final Result * (ABNORMAL) eGFR (08/16/2024 9:00 AM QUALITY CONTROLLER) eGFR 53(L) >=60 mL/min/1. 73 m2 Comment: Interpretive Data Reference Interval Normal >/= 90 mL/min/1.73m2 Mildly decreased* 60 - 89 mL/min/1.73m2 Mildly to moderately decreased 45 - 59 mL/min/1.73m2 Moderately to severely decreased 30 - 44 mL/min/1.73m2 Severely decreased 15 - 29 mL/min/1.73m2 Kidney Failure < 15 mL/min/1.73m2 *Relative to young adult level Estimated glomerular filtration rate is determined by the 2020 CKD-EPI equation recommended by the National Kidney Foundation (A Unifying Approach to GFR Estimation: Recommendations of the NKF-ASK Task Force on Reassessing the Inclusion of Race in Diagnosing Kidney Disease, JASN 2020). The CKD-EPI equation should not be used for patients with unstable renal function and has not been validated in children and those over 70. Current interpretive data was last reviewed 2021. Blood 08/16/2024 9:00 AM QUALITY CONTROLLER 08/16/2024 3:03 PM QUALITY CONTROLLER Ector Michaels MD LAB BLOOD ORDERABLES Final Result Performing Organization Address [facility] Phone Number ALAN [address] [email or web address] [address] * Thyroid Function [place] (08/16/2024 9:00 AM QUALITY CONTROLLER) Pathologist [facility] TSH 1.71 0.30 - 4.20 mcIUnit/mL Blood 08/16/2024 9:00 AM QUALITY CONTROLLER 08/16/2024 2:54 PM QUALITY CONTROLLER Ector Michaels MD LAB BLOOD ORDERABLES Final Result Performing Organization Address [facility] [place] [address] [address] [place] [address] * (ABNORMAL) PSA diagnostic (08/16/2024 9:00 AM QUALITY CONTROLLER) PSA-Total 7.52(H) <=6.20 ng/mL Comment: Interpretive Data AGE SEX REFERENCE INTERVAL 0 minutes-150 years Female None 0 minutes-49 years Male None 50-59 years Male 0-3.90 60-69 years Male 0-5.40 70-79 years Male 0-6.20 80-150 years Male 0-6.20 The Shona PSA Total assay procedure was used. Results from different manufacturers or methods may not be comparable. Serial testing should be performed using the same method. Current interpretive data last revised 22. Blood 08/16/2024 9:00 AM QUALITY CONTROLLER 08/16/2024 2:54 PM QUALITY CONTROLLER Ector Michaels MD LAB BLOOD ORDERABLES Final Result ALAN [place] [address] [place] [address] * Lipid panel (08/16/2024 9:00 AM QUALITY CONTROLLER) Cholesterol 122 30 - 199 mg/dL Comment: Interpretive Data Ages < or = 19 years Acceptable: <170 mg/dL Borderline high: 170-199 mg/dL High: >or= 200 mg/dL Ages > or = 20 years Desirable: <200 mg/dL Borderline high: 200-239 mg/dL High: >or= 240 mg/dL Literature References: 1. Expert Panel on Integrated Guidelines for Cardiovascular Health and Risk Reduction in Children and Adolescents. Pediatrics 2011;128:S213 2. NCEP Expert Panel. Circulation 2004;110:227 Current Interpretive Data was last revised on 2018. Triglycerides 51 <=149 mg/dL ALAN PERALTA Comment: Interpretive Data Ages < or = 9 years Acceptable: <75 mg/dL Borderline high: 75-99 mg/dL High: >or= 100 mg/dL Ages 10 to 20 years Acceptable: <90 mg/dL Borderline high: 90-129 mg/dL High: >or= 130 mg/dL Ages > or = 20 years Desirable: <150 mg/dL Borderline high: 150-199 mg/dL High: 200-499 mg/dL Very high: >or= 499 mg/dL Literature References: 1. Expert Panel on Integrated Guidelines for Cardiovascular Health and Risk Reduction in Children and Adolescents. Pediatrics 2011;128:S213 2. NCEP Expert Panel. Circulation 2004;110:227 Current Interpretive Data was last revised on 2018. HDL 71 >=40 mg/dL ALAN PERALTA Comment: Interpretive Data Ages < or = 19 years Acceptable: >45 mg/dL Borderline low: 40-45 mg/dL Low: <40 mg/dL Ages > or = 20 years Desirable: >or= 60 mg/dL Low: <40 mg/dL Literature References: 1. Expert Panel on Integrated Guidelines for Cardiovascular Health and Risk Reduction in Children and Adolescents. Pediatrics 2011;128:S213 2. NCEP Expert Panel. Circulation 2004;110:227 Current Interpretive Data was last revised on 2018. LDL, calculated 39 <=129 mg/dL ALAN PERALTA Comment: Interpretive Data Ages < or = 19 years Acceptable: <110 mg/dL Borderline high: 110-129 mg/dL High: >or= 130 mg/dL Ages > or = 20 years Optimal: <100 mg/dL Near optimal: 100-129 mg/dL Borderline high: 130-159 mg/dL High: >160 mg/dL Calculated using the Bipin LDL-C estimating equation. This equation was implemented on 2024. Prior to this date LDL-C was estimated using the Friedewald equation. Literature References: 1. Expert Panel on Integrated Guidelines for Cardiovascular Health and Risk Reduction in Children and Adolescents. Pediatrics 2011;128:S213 2. NCEP Expert Panel. Circulation 2004;110:227 3. Bipin Wheeler et al. COCO Cardiol. 2020 February 08;5(5):540-548. doi: 10.1001/jamacardio.2020.0013 Current Interpretive Data was last revised on 2024. Non-HDL Cholesterol 51 mg/dL ALAN PERALTA Comment: Interpretive Data Ages < or = 19 years Acceptable: <120 mg/dL Borderline high: 120-144 mg/dL High: >145 mg/dL Ages > or = 20 years When triglycerides are >200 mg/dL, Non-HDL cholesterol is a secondary target of therapy with treatment goals that are 30 mg/dL greater than the LDL cholesterol target. Literature References: 1. Expert Panel on Integrated Guidelines for Cardiovascular Health and Risk Reduction in Children and Adolescents. Pediatrics 2011;128:S213 2. NCEP Expert Panel. Circulation 2004;110:227 Current Interpretive Data was last revised on 2018. Chol/HDL ratio 2 [facility] Blood 08/16/2024 9:00 AM QUALITY CONTROLLER 08/16/2024 2:54 PM QUALITY CONTROLLER us Ector Michaels MD LAB BLOOD ORDERABLES Final Result Performing Organization Address [facility] de Phone Number [facility] [address] [place] [address] * Albumin Creatinine Ratio, Urine (05/15/2024 11:06 AM CDT) Albumin Ur 69.6 mg/L Comment: Interpretive Data No reference range established. Current interpretive data was last revised 2019. Creatinine Ur 508.5 mg/dL [facility] Comment: Interpretive Data No reference range established. Current interpretive data was last revised 2019. Albumin Creatinine Ratio, Ur 14 1 - 29 mg/g [facility] Urine 05/15/2024 11:0 6 AM CDT 05/15/2024 3:35 PM CDT us Lawanda Belcher NP LAB URINE ORDERABLES Erum l Result Performing Organization Address [facility] de Phone Number [facility] [address] [email or web address] [address] * DIABETES FOOT EXAM (11/27/2019) Pathologist [facility] Diabetic Foot Exam Normal Historical Provider HEALTH MAINTENANCE Final Result from Last 3 Months or Most Recently Relevant to Health Maintenance Insurance [employer] CHOICE MEDICARE PPO [facility] MEDICARE ADVANTAGE [facility] MEDICARE Address: [address] [address] [place] [address] [facility] CHOICE MEDICARE PPO [facility] MEDICARE ADVANTAGE [facility] MEDICARE Address: [id number] [place] [address] Advance Directives For more information, please contact: [phone] Documents on File Type Date Recorded Patient Sales Service Route Manager Expl anation Power of Retail Manager In Training 01/11/2025 8:22 AM * Full Code (Latest Code Status on File) Date Activated Date Inactivated Comments 11/26/2020 10:55 PM 12/02/2020 11:52 PM * Full Code Date Activated Date Inactivated Comments 08/07/2019 8:03 AM 08/07/2019 2:14 PM Care Teams Barrel Repairer Relationship Specialty Start Date End Date Ector Michaels MD 2 [facility] [address] [place] [address] PCP - General Family Medicine 04/06/24 [place] [address] [facility] [address] [place] [address] Consulting Physician Endocrinology Diabetes & Metabolism 11/08/18 Roselyn Delarosa DO [address] [place] [address] [address] [facility] [address] [place] [address] Consulting Physician Otolaryngology 08/01/20 [place] [address] [facility] [address] [place] [address] Consulting Physician Pulmonary Disease 05/09/21 Genevieve Carlton MD PhD [address] [facility], [facility] [address] [place] [address] Consulting Physician Neurology 05/09/21 Katerin Day MD 44[address] [facility], [facility] [address] [place] [address] Medical Oncologist/Hematologi st Hematology 05/09/21 Sander Hou MD [address] [place] [address] Referring Physician Ophthalmology 05/09/21 Raul De León MD [address] [place] [address] [place] [address] Consulting Physician Gastroenterology 05/09/21 Elen Carranza MD [address] [place] [address] [place] [address] Consulting Physician Nephrology 08/04/21 Elinor Calderon NP [address] [place] [address] [address] [place] [address] Nurse Practitioner Neurology 08/05/22
--- OUTSIDE RECORDS SUMMARY | 2025-02-06 07:06 | XMS_ITS | Encounter Summary ---
Author Organization [facility] Healthcare Address [address] [place] [address] Care Team Providers Care Tax Examiner Name Role Phone Maryam Alvarez MD Unavailable Vanesa Wood DO Primary Care Provider [phone] Jg Burt MD Unavailable [phone] Roselyn Delarosa DO Unavailable [phone] Jes Stockton MA Unavailable [phone] Radha Mann RN Unavailable [phone] Royal Neida Hsu MD Unavailable [phone] Genevieve Carlton MD PhD Unavailable [phone] Katerin Day MD Unavailable [phone] Sander Hou MD Unavailable [phone] Raul De León MD Unavailable [phone] Elen Carranza MD Unavailable [phone] Elinor Calderon NP Unavailable [phone] Ector Michaels MD Primary Care Provider [phone] Reason for Visit * Reason Onset Date Comments Scheduling Appointments 05/03/2020 Called f or barium swallow appointment reminder Encounter Details Date Type Department Care Team (Late st Contact Info) Description 05/03/2020 Telephone [facility] [address] [place] [address] Jaleesa Santoyo RT Scheduling Appointments (Called for barium swallow appointment reminder) Social History Tobacco Use Types Packs/Day Years Used Date Smoking Tobacco: Never Smokeless Tobacco: Never Alcohol Use Standard Drinks/Week Comments No 0 (1 standard drink = 0.6 oz pur e alcohol) PHQ-2 Answer Date Recorded PHQ-2 Score 0 06/02/2019 Sex and Gender Information Value Date Recorded Sex Assigned at Not on file Legal Sex Male 7:03 PM COOKER [facility]A Gender Identity Male 03/17/2021 6:45 PM CDT Sexual Orientation Not on file documented as of this encounter Plan of Treatment Not on file documented as of this encounter Visit Diagnoses Not on filedocumented in this encounter Additional Health Concerns Infection Onset Date Last Indicated Resolved Time COVID: Suspected 11/27/2020 11/27/2020 11/27/2020 8:01 AM COOKER [facility]A Respiratory Infection (ROMEL), contact + droplet Comment:IP Review - Patient classified as High Risk for COVID-19 by the Medical Triage Attending. There is a significant event note with an alternative diagnosis and at least one negative COVID-19 test documented in Epic. Patient meets criteria for COVID-19 isolation discontinuation. Yuriiams IPS 11/27/20 Automatically added due to negative COVID-19 result. 11/27/2020 11/27/2020 11/27/2020 4:[address] documented as of this encounter Care Teams Tax Examiner Relationship Specialty [place] [address] [address] [address] [address] PCP - General Family Medicine 07/31/19 04/05/24 Ector Michaels MD [address] [facility] [address] [place] [address] PCP - General Family Medicine 04/06/24 [place] [address] [address] [address] [place] [address] Consulting Physician Endocrinology Diabetes & Metabolism 11/08/18 Jg Burt MD [address] [facility] [address] [place] [address] Consulting Physician Neurology 07/31/19 05/08/21 Roselyn Delarosa DO [address] [facility] [address] [place] [address] Consulting Physician Otolaryngology 08/01/20 Jes Stockton MA [address] [place] [address] [address] [place] [address] ACO Care Fishing Vessel Mate 11/28/20 11/28/20 Radha Mann RN [address] [place] [address] [address] [place] [address] Filler Shredding Machine Loader 12/03/20 12/30/20 [place] [address] [facility] [address] [place] [address] Consulting Physician Pulmonary Disease 05/09/21 Genevieve Carlton MD PhD [address] [facility], [place] [address] [place] [address] Consulting Physician Neurology 05/09/21 Katerin Day MD [address] NEUROLOGY ADULT, [facility] [address] [place] [address] Medical Oncologist/Hematologi st Hematology 05/09/21 Sander Hou MD [address] [place] [address] Referring Physician Ophthalmology 05/09/21 Raul De León MD [address] [place] [address] [address] [place] [address] Consulting Physician Gastroenterology 05/09/21 Elen Carranza MD [address] [place] [address] [address] [place] [address] Consulting Physician Nephrology 08/04/21 Elinor Calderon NP [address] [place] [address] [address] [place] [address] Nurse Practitioner Neurology 08/05/22 documented as of this encounter
--- OUTSIDE RECORDS SUMMARY | 2025-02-06 07:06 | XMS_ITS | Encounter Summary ---
Author Organization [facility] Healthcare Address [address] [place] [address] Care Team Providers Care Breaker Up Machine Operator Name Role Phone Maryam Alvarez MD Unavailable Vanesa Wood DO Primary Care Provider [phone] Jg Burt MD Unavailable [phone] Roselyn Delarosa DO Unavailable [phone] Royal Neida Hsu MD Unavailable [phone] Genevieve Carlton MD PhD Unavailable [phone] Katerin Day MD Unavailable [phone] Sander Hou MD Unavailable [phone] Raul De León MD Unavailable [phone] Elen Carranza MD Unavailable [phone] Elinor Calderon NP Unavailable [phone] Ector Michaels MD Primary Care Provider [phone] Encounter Details Date Type Department Care Team (Late st Contact Info) Description 05/02/2021 Telephone [facility] Radiology [address] [place] [address] Genevieve Carlton MD PhD [address] [facility] [address] [place] [address] Social History Tobacco Use Types Packs/Day Years [...] week 12/03/2020 How often do you attend chur ch or judaism services? More than 4 times per year 12/03/2020 Do you belong to any clubs o r organizations such as sabianist groups, unions, fraternal or athletic groups, or school groups? Yes 12/03/2020 How often do you attend meet ings of the clubs or organizations you belong to? More than 4 times per year 12/03/2020 Are you , , di vorced, , never , or living with a partner? 12/03/2020 Overall Financial Resource Strain (CARDIA) Answe r Date Recorded How hard is it for you to pa y for the very basics like food, housing, medical care, and heating? Not hard at all 12/03/2020 PHQ-2 Answer Date Recorded PHQ-2 Total Score (If total score is 3 or more points, staff should administer the PHQ-9) 0 02/06/2021 PRAPARE - Transportation Answer Date Re corded [...] place to sleep or slept in a intermediate (including now)? 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 Not on file Not on file Not o n file documented as of this encounter Plan of Treatment Not on file documented as of this encounter Visit Diagnoses Not on filedocumented in this encounter Care Teams Breaker Up Machine Operator Relationship Specialty [place] [address] [place] [address] PCP - General Family Medicine 07/31/19 04/05/24 Ector Michaels MD [address] [place], [place] [id number] PCP - General Family Medicine 04/06/24 [place] [address] [place], [place] [id number] Consulting Physician Endocrinology Diabetes & Metabolism 11/08/18 Jg Burt MD [address] [place] [address] [address] [place] [address] Consulting Physician Neurology 07/31/19 05/08/21 Roselyn Delarosa DO [address] [facility] [address] [place] [facility] [address] [place] [address] Consulting Physician Otolaryngology 08/01/20 [place] [address] [address] [place] [address] Consulting Physician Pulmonary Disease 05/09/21 Genevieve Carlton MD PhD [address] [place] [address] [address] [facility] [place] [address] Consulting Physician Neurology 05/09/21 Katerin Day MD [address] [facility] [place] [address] Medical Oncologist/Hematologi Hematology 05/09/21 Sander Hou MD [address] [place] [address] Referring Physician Ophthalmology 05/09/21 Raul De León MD [address] [place] [address] [address] [place] [address] Consulting Physician Gastroenterology 05/09/21 Elen Carranza MD [address] [place] [address] [address] [place] [address] Consulting Physician Nephrology 08/04/21 Elinor Calderon, EJ [address] [place] [address] [address] [place] [address] Nurse Practitioner Neurology 08/05/22 documented as of this encounter
--- OUTSIDE RECORDS SUMMARY | 2025-02-06 07:06 | XMS_ITS | Clinical Summary ---
Author Organization [address] Address [address] [place] [address] Care Team Providers Care Director Group Sales Name Role Phone Maryam Alvarez MD Unavailable Roselyn Delarosa DO Unavailable [phone] Royal Neida Hsu MD Unavailable [phone] Genevieve Carlton MD PhD Unavailable [phone] Katerin Day MD Unavailable [phone] Sander Hou MD Unavailable Raul De León MD Unavailable [phone] Elen Carranza MD Unavailable Elinor Calderon NP Unavailable Ector Michaels MD Primary Care Provider Allergies Active Allergy Reactions Criticality Noted Date Comments Famotidine Delusions Medium 11/28/2020 Medications lancing device misc Lancing device for One Touch Ultra 0 012 Active docusate sodium (COLACE) 100 mg capsuleIndicatio ns:constipation Take 1 capsule (100 mg total) by mouth as needed for constipation Active blood-glucose meter misc Active blood-glu meter,cont-trans liliam misc Active urine glucose-ketones test stripIndications :Type 1 [...] hypoglycemia) 2 each 3 022 Active MiniMed Zander Advance Inf Set23 infusion set 024 Active Paradigm [place] 3 mL [facility] 024 Active Eliquis 2.5 mg tabletIndication s:Acute [...] 04/2024 Assessment & Plan (08/17/2024 1:51 PM BOILERS AND PRESSURE VESSELS INSPECTOR): A(n) yearly Medicare Annual Wellness Visit has [...] 11/22/2023 Assessment & Plan (11/22/2023 2:26 PM BOILERS AND PRESSURE VESSELS INSPECTOR): Physical therapy, occupational therapy Balance problem 11/22/2023 Parkinsonism 11/22/2023 Double vision 11/22/2023 Assessment & Plan (11/22/2023 2:25 PM BOILERS AND PRESSURE VESSELS INSPECTOR): Occurs only when reading, f/u with opthalmology [...] today for genetic research - met with care trainer for resources and support -patient is interested in opportunities for research, provided information on where to obtain (see AVS. Assessment & Plan (11/22/2023 2:25 PM BOILERS AND PRESSURE VESSELS INSPECTOR): Donepezil/Aricept 10 mg daily Namenda not indicated at this mild stage of impairment. Would need to clear with nephrology Physical therapy, occupational therapy and Speech Therapy Parkinson's Disease resources provided by [employer] Coach Tamra Valerio Assessment & Plan (08/10/2023 12:34 PM CDT): Managed by neurology, continue donepezil . Assessment & Plan (08/05/2022 11:16 AM CDT): Stable. Cont. Current prescription medications. Patient managed by the memory center in [place]. Assessment & Plan (04/06/2022 5:23 PM CDT): Stable course of disease. Some improvement in daily life. Short term memory issues captured in testing. Continue Aricept 5mg every morning. Do not recommend increase given lower heart rate. No plans to add Namenda or Sinemet at the current time. Will follow-up on driving evaluation status in [place]. RTC in 1 year. Assessment & Plan (08/04/2021 6:19 PM CDT): Stable. Cont. Current prescription medications. Assessment & Plan (05/09/2021 11:57 AM CDT): Stable. Followed by Neurology. Continue current medications. Assessment & Plan (03/24/2021 2:11 PM CDT): Brain MRI - 3D Sleep Medicine for RBD evaluation Aricept 5mg at night, monitor for visual hallucinations Anemia 12/10/2020 Assessment & Plan (12/19/2020 12:21 PM BOILERS AND PRESSURE VESSELS INSPECTOR): Clinically improving. Keep scheduled appointment with makeup artistry instructor oncologist. Thrombocytopenia 11/29/2020 Assessment & Plan (08/05/2022 11:17 AM CDT): Followed closely by Hematology. Asymptomatic. Keep scheduled appointment. Assessment & Plan (12/19/2020 12:20 PM BOILERS AND PRESSURE VESSELS INSPECTOR): Followed by hematology oncology. Clinically improving. Assessment & Plan (12/02/2020 1:39 PM BOILERS AND PRESSURE VESSELS INSPECTOR): ctm Assessment & Plan (12/01/2020 2:18 PM BOILERS AND PRESSURE VESSELS INSPECTOR): ctm History of pulmonary embolism 11/26/2020 Assessment & Plan (05/09/2021 11:56 AM CDT): Asymptomatic. Managed by Hematology-Oncology. Continue current medications. Assessment & Plan (12/19/2020 12:18 PM BOILERS AND PRESSURE VESSELS INSPECTOR): This patient has upcoming appointment with Hematology-Oncology. [...] to discuss this in detail with the makeup artistry instructor on his upcoming visit. Assessment & Plan (12/02/2020 1:39 PM BOILERS AND PRESSURE VESSELS INSPECTOR): Cont lmwh Heme follow up Assessment & Plan (12/02/2020 1:29 PM BOILERS AND PRESSURE VESSELS INSPECTOR): Doing well, but need to minimize risk of hypoglycemia. Assessment & Plan (12/01/2020 2:16 PM BOILERS AND PRESSURE VESSELS INSPECTOR): Syncope 11/25 with large saddle PE extending [...] 04/23/2020 Assessment & Plan (11/22/2023 2:26 PM BOILERS AND PRESSURE VESSELS INSPECTOR): Speech Therapy Assessment & Plan (04/23/2020 5:50 [...] 11/27/2019 Assessment & Plan (11/27/2019 8:44 AM BOILERS AND PRESSURE VESSELS INSPECTOR): Consider adding Zyrtec 10 mg daily. BMI [...] time. Assessment & Plan (09/17/2022 5:04 PM BOILERS AND PRESSURE VESSELS INSPECTOR): Chronic, well controlled Importance of low salt diet and exercise were discussed Continue current meds Assessment & Plan (08/05/2022 11:18 AM CDT): Blood pressure at goal less than 140/90, continue current prescription medications. Managed by Nephrology. Assessment & Plan (02/26/2022 2:43 PM CDT): Chronic, well controlled Continue current meds Assessment & Plan (11/27/2021 12:14 PM BOILERS AND PRESSURE VESSELS INSPECTOR): Goal blood pressure is less than 140/85 Low salt diet was discussed andd recommended The importance of daily aerobic exercise was also emphasized. Continue current meds. Assessment & Plan (08/21/2021 2:26 PM BOILERS AND PRESSURE VESSELS INSPECTOR): BP at goal Low salt diet Exercise Continue current meds Assessment & Plan (08/04/2021 6:20 PM CDT): Low blood pressure today without symptoms. Encouraged patient to reach out to manual qa tester about today's bp reading. Also, encouraged patient [...] Avapro Assessment & Plan (12/19/2020 12:21 PM BOILERS AND PRESSURE VESSELS INSPECTOR): Well controlled. Continue current management. Assessment & Plan (12/02/2020 1:38 PM BOILERS AND PRESSURE VESSELS INSPECTOR): BP low normal since arrival - continue to hold home HCTZ and ARB Assessment & Plan (11/29/2020 8:20 PM BOILERS AND PRESSURE VESSELS INSPECTOR): BP low normal since arrival - continue to hold home HCTZ and ARB Assessment & Plan (10/25/2020 9:32 AM BOILERS AND PRESSURE VESSELS INSPECTOR): Controlled on current medications. Continue plan. Assessment [...] plan. Assessment & Plan (11/27/2019 8:44 AM BOILERS AND PRESSURE VESSELS INSPECTOR): Clinically improved, continue current meds. Assessment & Plan (09/14/2019 12:15 PM BOILERS AND PRESSURE VESSELS INSPECTOR): Goal blood pressure is less than 140/85 [...] ARB Assessment & Plan (11/27/2018 2:47 PM BOILERS AND PRESSURE VESSELS INSPECTOR): Advised take HTN meds daily. Do not [...] ARB Assessment & Plan (09/23/2017 8:51 AM BOILERS AND PRESSURE VESSELS INSPECTOR): Goal blood pressure is less than 140/85 [...] update MA/Cr today. Verified that he uses dVisit. Aware to check results/results letter in dVisit. Will contact by phone if needed. Due [...] Continue pump at current settings Will contact [employer] to train patient on the new 780 [...] update MA/Cr today. Verified that he uses [employer]. Aware to check results/results letter in dVisit. Will contact by phone if needed. Due [...] update MA/Cr today. Verified that he uses [employer] System[employer]. Aware to check results/results letter in dVisit. Will contact by phone if needed. UTD [...] pump Assessment & Plan (09/17/2022 5:04 PM BOILERS AND PRESSURE VESSELS INSPECTOR): Hba1c was Lab Results Component Value Date [...] settings. Assessment & Plan (11/27/2021 12:12 PM BOILERS AND PRESSURE VESSELS INSPECTOR): Hba1c was Lab Results Component Value Date HGBA1C 7.5 11/27/2021 today, indicating acceptable DM control Goal Hba1c and blood glucose explained Diet and exercise were advised Prevention and treatment of hyypoglcyemia were discussed with the patient Blood glucose monitoring : FSL Adjustment to medications: continue pump at current settings. 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 Patient is without complaints. Continue current management. [...] 110-110 Assessment & Plan (12/02/2020 1:38 PM BOILERS AND PRESSURE VESSELS INSPECTOR): Increased ac insulin per endo recs Assessment & Plan (12/02/2020 1:31 PM BOILERS AND PRESSURE VESSELS INSPECTOR): Glucoses within a reasonable margin of safety. [...] 4 Assessment & Plan (12/01/2020 2:13 PM BOILERS AND PRESSURE VESSELS INSPECTOR): Increased ac insulin per endo recs Assessment & Plan (10/25/2020 9:32 AM BOILERS AND PRESSURE VESSELS INSPECTOR): A1c 7.4. But with some reported hypoglycemia. Will lower basal rates MN-10 am. Will have [employer] staff trainer set patient up on automode. Assessment [...] carb intake and BG readings was discussed Freestyle Hima reset. Assessment & Plan (12/28/2019 11:17 AM CDT): A1c worsening at 8.7. After assessing pt familiarity with pump/sensor combo, d/t memory issues, do not recommend that he enter into automode without another 1:1 training with rep to address all concerns. Will increase basal rate later in day to address elevated pattern. Sick day rules reviewed. Assessment & Plan (09/14/2019 12:15 PM BOILERS AND PRESSURE VESSELS INSPECTOR): Hba1c was Lab Results Component Value Date [...] and treatment of hyypoglcyemia discussed. Will request [employer] Assessment & Plan (11/27/2018 2:50 PM BOILERS AND PRESSURE VESSELS INSPECTOR): A1c 7.6. On vacation recently and BG [...] goal hba1c is under 7.0 to prevent extermination supervisor diabetes complications ( eye , kidney and [...] DM. Assessment & Plan (09/23/2017 9:23 AM BOILERS AND PRESSURE VESSELS INSPECTOR): Last Hba1c was 7.6 today, indicating suboptimal [...] measurements from today's office visit with your manual qa tester, in case some adjustments need to be made with your current dose of bp medications. Traumatic hematoma of right upper arm 11/29/2020 05/09/2021 Assessment & Plan (12/02/2020 1:39 PM BOILERS AND PRESSURE VESSELS INSPECTOR): secondary to fall, Humerus Xray neg fracture - q4 neurovasc checks, call vascular if c/f hematoma/compartment syndrome - Had bilateral UE dopplers - neg for DVT -1 unit prbc on 11/30 - 12/01: circumference of R arm is decreasing - hgb stable Assessment & Plan (12/01/2020 2:16 PM BOILERS AND PRESSURE VESSELS INSPECTOR): secondary to fall, Humerus Xray neg fracture - q4 neurovasc checks, call vascular if c/f hematoma/compartment syndrome - Had bilateral UE dopplers - neg for DVT -1 unit prbc on 11/30 - 12/01: circumference of R arm is decreasing Dementia 11/29/2020 05/09/2021 Assessment & Plan (12/02/2020 1:39 PM BOILERS AND PRESSURE VESSELS INSPECTOR): Follow up in the memory clinic Assessment & Plan (11/29/2020 8:19 PM BOILERS AND PRESSURE VESSELS INSPECTOR): A&Ox3. Has occasional hallucinations. Being worked up [...] 2. MINOR SMALL VESSEL MICROVASCULAR ISCHEMIC DISEASE. hook puller associated wi th adverse incidents 06/29/2017 08/10/2023 Assessment & Plan (12/02/2020 1:28 PM BOILERS AND PRESSURE VESSELS INSPECTOR): He is adept in using and managing the insulin pump. Assessment & Plan (10/25/2020 9:33 AM BOILERS AND PRESSURE VESSELS INSPECTOR): Reduce Mn basal to 0.6, 0400 to 0.725, 0700 to 0.8 = new TDB 18.025 Assessment & Plan (07/12/2020 11:54 AM CDT): Lower IC to 6.5. Assessment & Plan (12/28/2019 11:07 AM CDT): Increase basal from 3 pm to MN to 0.7. Assessment & Plan (09/14/2019 12:16 PM BOILERS AND PRESSURE VESSELS INSPECTOR): Have long acting , basal insulin ( [...] ) Assessment & Plan (11/27/2018 2:48 PM BOILERS AND PRESSURE VESSELS INSPECTOR): No change. Is adept at adjusting settings. [...] pump. Assessment & Plan (09/23/2017 9:23 AM BOILERS AND PRESSURE VESSELS INSPECTOR): Have long acting , basal insulin ( [...] (01/14/2017): DMII WO CMP NT ST [facility] Encounters Date Type Department Care Team Description 01/11/2025 11:00 AM CDT - 01/11/2025 12:00 PM CDT Surgery [facility] Operating Room [address] [place] [address] Tony Alcantara MD URONAV GUIDED PROSTATE BIOPSY 01/11/2025 9:56 AM CDT Anesthesia Event [facility] Operating Room [address] [place] [address] Zaki Lisa MD McDowell, Juri Osmell, MD 01/11/2025 8:18 AM CDT - 01/11/2025 12:30 PM CDT Hospital Encounter [facility] Operating Room [address] [place] [address] Tony Alcantara MD Elevated prostate specific antigen (PSA) Discharge Disposition: Discharge to home or self care 12/28/2024 11:15 AM CDT Office Visit [facility] [address] 6[address] [place] [address] Elinor Calderon NP Lewy body dementia without behavioral disturbance (HCC) (Primary Dx); Speech and language deficits 12/19/2024 Telephone [facility] Diabetes and Endocrinology [address] [place] [phone] Maryam Alvarez MD Forms/questionnaires ( Advanced) 12/18/2024 3:00 PM CDT Office Visit [facility] Medical [facility] Diabetes and Endocrinology [address] [place] [phone] Lawanda Belcher, EJ Type 1 diabetes mellitus with hyperglycemia (HCC) (Primary Dx); Hypertension associated with type 1 diabetes mellitus (HCC); Insulin pump status 12/18/2024 Telephone [facility] Diabetes and Endocrinology [address] [place] [phone] Lawanda Belcher, EJ [employer] 12/12/2024 Telephone [facility] Diabetes and Endocrinology [address] [place] [phone] Lawanda Belcher NP Forms/questionnaires ([employer]) 11/27/2024 2:45 PM BOILERS AND PRESSURE VESSELS INSPECTOR Orders Only [facility] for [facility] and Hyperbaric Medicine [address] [place] [address] from Last 3 Months Immunizations Immunization Administration Dates Next Due Influenza, [...] Free 11/03/2006 Tdap 11/09/2018 ZOSTER Recombinant 08/19/2020,05/14/2020 Surgical History Surgery Date Site/Laterality Comments CHOLECYSTECTOMY 10/11/2007 - 10/10/2008 Cholecystectomy COLONOSCOPY 10/11/2008 - 10/10/2009 CATARACT EXTRACTION, BILATERAL - Bilateral IMPLANT 01/09/2023 - 02/07/2023 lower teeth CATARACT EXTRACTION 2020 r,2020 l eye ,May 28 LASIK May 1999 VASECTOMY 1979 Medical History Medical History Date Comments Hx Other Medical psedocyst Diabetes mellitus (HCC) Diabetes Disorder of gallbladder Gallblad de disease Hypertension Hypertension Pancreatitis 2008 Pancreatitis Hx Other Medical Not Claustropho bic; Comments: GFC 07/04/2014 - Cataract Hard to intubate Diabetes mellitus type I (HCC) h as insulin pump Pulmonary embolus (HCC) 11/25/2020 Clotting disorder 11/25/20 Dementia (HCC) Parkinson's disease (HCC) Family History Medical History Relation Name Comments Cancer Mother Rell Benavidez Diabetes Mother Rell Benavidez Diabetes type II Other 1 Family hist ory of Diabetes -Type II; Hypertension Other 2 Family history of Hypertension; Diabetes Other 3 Family history of Diabetes mellitus; Diabetes type II Sister Diabetes me llitus type 2; Relation Name Status Comments Mother Rell Benavidez Other 1 Other 2 Other 3 Sister Social History Tobacco Use Types Packs/Day Years [...] often do you attend chur ch or mandaeism services? More than 4 times per year 12/03/2020 Do you belong to any clubs o r organizations such as catholic groups, unions, fraternal or athletic groups, or [...] place to sleep or slept in a jail (including now)? No 12/03/2020 Personal Safety Answer Date Recorded Have you ever been in or are you currently in a harmful physical or emotional relationship or is someone making you feel afraid or unsafe? 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 on file Not on file Not o n file Obstetrics History Last Filed Vital Signs Vital Sign Reading [...] 01/11/2025 8:33 AM CDT Plan of Treatment Health Maintenance Due Date Last Done Comments Hepatitis B Screening 1963 Covid-19 Vaccine (2023- 5 season) 2024 08/03/2023, 08/01/2022, 01/12/2022, Additional history exists Albumin Creatinine Ratio, Urine 05/15/2025 05/15/2024, 04/06/2023, 04/06/2023, Additional history exists Hemoglobin A1C 06/20/2025 12/18/2024, 08/0 02/2024, 01/11/2024, Additional history exists Depression Screening 08/16/2025 08/16/2024, 04/06/2024, 08/10/2023, Additional history exists Lipid Panel 08/16/2025 08/16/2024, 07/13, 08/07/2022, Additional history exists TSH Level 08/16/2025 08/16/2024, 07/12, 11/27/2020, Additional history exists Well Visit 65+ 08/16/2025 08/16/2024, 07/13, 08/05/2022, Additional history exists eGFR 08/16/2025 08/16/2024, 05/0 04/2024, 08/06/2023, Additional history exists Foot Exam 12/18/2025 12/18/2024, 03/12, 04/06/2024, Additional history exists Fall Risk Assessment 12/19/2025 12/19/2024, 08/16/2024, 04/06/2024, Additional history exists Dilated Eye Exam 09/05/2026 09/05/2024, , 01/14/2022, Additional history exists DTaP/Tdap/Td Vaccine (2 - Td or Tdap) 11/09/2028 11/09/2018, 11/03/2006 Pneumococcal vaccine 65+ Completed 08/09/2017, 06/12 Zoster Vaccine Completed 08/19/2020, 05/14/2020 Influenza Vaccine Completed 08/16/2024, , 07/15/2022, Additional history exists Prostate Cancer Screening-PSA Discontinued , 12/13/2020, 02/15/2019, Additional history exists Procedures Procedure Name Priority Date/Time Associated Diagnosis [...] 1 diabetes mellitus with hyperglycemia (HCC) DIABETES EYE EXAM Routine 09/05/2024 8:53 AM BOILERS AND PRESSURE VESSELS INSPECTOR EGFR Routine 08/16/2024 9:00 AM BOILERS AND PRESSURE VESSELS INSPECTOR Hypertension associated with type 1 diabetes mellitus (HCC) LIPID PANEL Routine 08/16/2024 9:00 AM BOILERS AND PRESSURE VESSELS INSPECTOR Hypertension associated with type 1 diabetes mellitus (HCC) THYROID FUNCTION CASCADE Routine 08/16/2024 9:00 AM BOILERS AND PRESSURE VESSELS INSPECTOR Hypertension associated with type 1 diabetes mellitus (HCC) PSA DIAGNOSTIC Routine 08/16/2024 9:00 AM BOILERS AND PRESSURE VESSELS INSPECTOR Benign prostatic hyperplasia with nocturia ALBUMIN CREATININE RATIO, URINE Routine 05/15/2024 11:06 AM CDT Type 1 diabetes mellitus with hyperglycemia (HCC) DIABETES FOOT EXAM Routine 11/27/2019 from Last 3 Months or Most Recently Relevant to Health Maintenance Results * POCT glucose (01/11/2025 10:28 AM CDT) Glucose, POC 125 70 - 199 mg/dL Blood 01/11/2025 10:2 8 AM CDT 01/11/2025 10:28 AM CDT us Tony Alcantara MD LAB POCT ORDERABLES - DEVICE Final Result [facility] [place]) 1 [facility] [place] [address] * ECG 12 lead (01/11/2025 9:08 AM CDT) 01/11/2025 9:08 AM CDT Narrative [facility] - 01/11/2025 10:28 AM CDT Vent Rate: 60 bpm RR Interval: 996 msec PA Interval: 137 msec QRS Duration: 81 msec QT Interval: 409 msec QTC Interval: 409 msec P-R-T [place]: 55 - -38 - 30 degrees IMPRESSION: SINUS RHYTHM MARKED LEFT AXIS DEVIATION [QRS AXIS < -30] MODERATE VOLTAGE CRITERIA FOR LVH, CONSIDER NORMAL VARIANT [MEETS CRITERIA IN ONE OF: R(aVL), S(V1), R(V5), R(V5/V6)+S(V1)] ABNORMAL ECG Compared to prior EKG, heart rate has decreased Electronically Signed By: Carlos Alvarado MD Erin Shaffer MD ECG ORDERABLES Final Re sult Performing Organization Address City/[facility]/ZIP Co de Phone Number [facility] [employer] [facility] * Potassium, whole blood (01/11/2025 9:04 AM [...] BLOOD ORDERABLES Fin al Result [facility] ([place]) 1 [facility] [place] [address] * POCT glucose (01/11/2025 8:57 AM CDT) Glucose, POC 117 70 - 199 mg/dL Blood 01/11/2025 8:57 AM CDT 01/11/2025 8:57 AM CDT Tony Alcantara MD LAB POCT ORDERABLES - DEVICE Final Result [facility] ([place]) [address] [place] [address] [place] [address] * Surgical pathology (01/11/2025 8:35 AM CDT) [...] Biopsy) 01/11/2025 9:42 AM CDT Narrative [facility] ([place]) - 01/16/2025 12:24 PM CDT EPIC results best viewed via link to PDF [facility] Department of Pathology [address] [place] [id number] Note to Patients: This report may contain [...] with Addendum Patient Name: MICK BARON Address: [address] [place] [address] Gender: M : 1945 (Age: 79) Service: Surgery Location: [facility] #: [id number] Patient Type: [facility] Taken: 01/11/2025 Received: 01/12/2025 Accessioned: 01/12/2025 Reported: 01/16/2025 Physician(s):Tony Alcantara M.D. Diagnosis: A. 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 Prostate, right lateral apex, needle biopsy- Prostatic acinar adenocarcinoma, [place] grade 4+3=7, grade group 3 Tumor involves [...] and 2.3 cm. Entirely in M. T.A. Broderick Calvillo, PGt./Loy Martinez M.D. REPORT IMAGES AND SCANNED DOCUMENTS, IF INCLUDED, ONLY VIEWABLE IN PDF VERSION OF REPORT The performance characteristics of some immunohistochemical stains, fluorescence in-situ hybridization tests and immunophenotyping by flow cytometry cited in this report (if any) were determined by the Surgical Pathology Department at [facility] as part of an ongoing senior quality manager program and in compliance with federally [...] characteristics determined by the Surgical Pathology Department [facility]. It has not been cleared or approved by the U. S. Food and Drug Administration. Note for decalcified specimens: This assay has not been validated on decalcified tissues. Results should be interpreted with caution given the possibility of false negativity on decalcified specimens Tony Alcantara MD LAB PATHOLOGY ORDERA BLES Final Result [facility] ([place]) [address] [place] [address] * (ABNORMAL) POCT hemoglobin A1c (12/18/2024 2:58 PM CDT) Hemoglobin A1C, POC 7.8 4.0 - 5.6 % Blood 12/18/2024 2:58 PM CDT us Lawandacara Belcher TECHNICAL TRAINING COORDINATOR POINT OF CARE TEST ORDERA BLES Final Result * (ABNORMAL) POCT glucose (12/18/2024 2:58 PM CDT) Glucose Blood, POC 364 mg/dL Blood 12/18/2024 2:58 PM CDT us Lawanda Belcher TECHNICAL TRAINING COORDINATOR POINT OF CARE TEST ORDERA BLES Final Result * DIABETES EYE EXAM (09/05/2024 8:53 AM BOILERS AND PRESSURE VESSELS INSPECTOR) us Historical Provider HEALTH MAINTENANCE Final Result * (ABNORMAL) eGFR (08/16/2024 9:00 AM BOILERS AND PRESSURE VESSELS INSPECTOR) eGFR 53(L) >=60 mL/min/1. 73 m2 Comment: [...] last reviewed 2021. Blood 08/16/2024 9:00 AM BOILERS AND PRESSURE VESSELS INSPECTOR 08/16/2024 3:03 PM BOILERS AND PRESSURE VESSELS INSPECTOR us Ector Michaels MD LAB BLOOD ORDERABLES Final Result Performing Organization Address [facility] Co de Phone Number [facility] [place] [phone] [facility] [place] [address] * Thyroid Function Mcdowell (08/16/2024 9:00 AM BOILERS AND PRESSURE VESSELS INSPECTOR) TSH 1.71 0.30 - 4.20 mcIUnit/mL Blood 08/16/2024 9:00 AM BOILERS AND PRESSURE VESSELS INSPECTOR 08/16/2024 2:54 PM BOILERS AND PRESSURE VESSELS INSPECTOR Result Beto Ector Michaels MD LAB BLOOD ORDERABLES Final Result Performing Organization Address [facility] Phone Number KALLIEDY [place] [phone] [facility] [place] [address] * (ABNORMAL) PSA diagnostic (08/16/2024 9:00 AM BOILERS AND PRESSURE VESSELS INSPECTOR) PSA-Total 7.52(H) <=6.20 ng/mL Comment: Interpretive Data [...] last revised 22. Blood 08/16/2024 9:00 AM BOILERS AND PRESSURE VESSELS INSPECTOR 08/16/2024 2:54 PM BOILERS AND PRESSURE VESSELS INSPECTOR Result [facility] us Ector Michaels MD LAB BLOOD ORDERABLES Final Result Performing Organization Address [facility] Co ca Phone Number ALAN PERALTA [id number] [facility] [place] [address] * Lipid panel (08/16/2024 9:00 AM BOILERS AND PRESSURE VESSELS INSPECTOR) Cholesterol 122 30 - 199 mg/dL Comment: [...] last revised on 2018. Chol/HDL ratio 2 ALAN PERALTA Blood 08/16/2024 9:00 AM BOILERS AND PRESSURE VESSELS INSPECTOR 08/16/2024 2:54 PM BOILERS AND PRESSURE VESSELS INSPECTOR us Ector Michaels MD LAB BLOOD ORDERABLES Final Result ALAN PERALTA [id number] [place] [address] * Albumin Creatinine Ratio, Urine (05/15/2024 11:06 AM CDT) Albumin Ur 69.6 mg/L Comment: Interpretive Data No reference range established. Current interpretive data was last revised 2019. Creatinine Ur 508.5 mg/dL ALAN Comment: Interpretive Data No reference range established. Current interpretive data was last revised 2019. Albumin Creatinine Ratio, Ur 14 1 - 29 mg/g ALAN Urine 05/15/2024 11:0 6 AM CDT 05/15/2024 3:35 PM CDT us Lawanda Belcher TECHNICAL TRAINING COORDINATOR LAB URINE ORDERABLES Erum l Result ALAN [address] [place] [address] * DIABETES FOOT EXAM (11/27/2019) Diabetic Foot Exam Normal us Historical Provider HEALTH MAINTENANCE Final Result from Last 3 Months or Most Recently Relevant to Health Maintenance Insurance [employer] MEDICARE PPO [facility] MEDICARE ADVANTAGE [facility] CHOICE MEDICARE PPO [facility] MEDICARE ADVANTAGE Advance Directives For more information, please contact: [phone] Documents on File Type Date Recorded 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 01/11/2025 8:22 AM * Full Code (Latest Code Status on File) Date Activated Date Inactivated Comments 11/26/2020 10:55 PM 12/02/2020 11:52 PM * Full Code Date Activated Date Inactivated Comments 08/07/2019 8:03 AM 08/07/2019 2:14 PM Care Teams Director Group Sales Relationship Specialty Start Date End Date Ector Michaels MD [address] [facility] [address] [place] [address] PCP - General Family Medicine 04/06/24 [place] [id number] [facility] [address] [place] [address] Consulting Physician Endocrinology Diabetes & Metabolism 11/08/18 Roseyln Delarosa DO [address] [place] [address] [address] Drummond [facility] [address] [place] [address] Consulting Physician Otolaryngology 08/01/20 [place] [address] [facility] [address] [place] [address] Consulting Physician Pulmonary Disease 05/09/21 Genevieve Carlton MD PhD [address] DIV NEUROLOGY ADULT, [address] [place] [address] Consulting Physician Neurology 05/09/21 Katerin Day MD [address] DIV NEUROLOGY ADULT, [address] [place] [address] Medical Oncologist/Hematologi st Hematology 05/09/21 Sander Hou MD [address] [place] [address] Referring Physician Ophthalmology 05/09/21 Raul De León MD [address] [place] [address] [address] [place] [address] Consulting Physician Gastroenterology 05/09/21 Elen Carranza MD [address] [place] [address] [place] [address] Consulting Physician Nephrology 08/04/21 Elinor Calderon NP [address] [place] [address] [place] [address] Nurse Practitioner Neurology 08/05/22
== END 2025-02-06 07:01 | disposition home or self-care (01) ==
PROVIDERS: PCP Family Medicine; Visit Provider Urology
DX: C61 Malignant neoplasm of prostate (principal)
CPT/HCPCS: 78815; A9596

== ENCOUNTER 2025-08-08 12:28 | Emergency (ER) | payer MEDICARE, SELFPAY ==
[2025-08-08] VITALS (9 sets, daily range): BP systolic 117–198; BP diastolic 54–159; PULSE 64–80; RESP 12–19; TEMP 37.2; O2SAT 99–100
[2025-08-08 13:58] LABS: Hematocrit 36.8 % (42.0-52.0); Hemoglobin 11.9 g/dL (14.0-18.0); Immature Granulocyte Percent A 0.6 % (0-0.5); Lymphocytes Absolute Auto 0.83 K/mm3 (0.9-3.2); Mean Corpuscular HGB Conc 32.3 g/dl (32-36); Mean Corpuscular Hemoglobin 30.1 pg (26-34); Mean Corpuscular Volume 92.9 fl (80-100); Nucleated Red Blood Cells Absolute Auto 0.000 K/mm3 (0.0-0.012); Nucleated Red Blood Cells Perc 0.0 % (0.0-0.2); Platelet Count Result 178 k/mm3 (150-375); Red Blood Count 3.96 M/mm3 (4.6-6.20); White Blood Count 10.6 K/mm3 (4.5-10.0)
[2025-08-08 14:28] LABS: Alanine Aminotransferase 16 U/L (6-50); Albumin Level 4.1 g/dL (3.5-5.1); Alkaline Phosphatase 40 U/L (38-126); Anion Gap 6 mmol/L (4-12); Aspartate Amino Transferase 24 U/L (17-59); Bilirubin,Total 0.7 mg/dL (0.2-1.3); Blood Urea Nitrogen 30 mg/dL (9-20); Calcium 9.1 mg/dL (8.4-10.2); Carbon Dioxide 24 mmol/L (22-30); Chloride 106 mmol/L (98-107); Estimated CRCL calculation 40 ml/min; Estimated Glomerular Filt Rate 58; Glucose 53 mg/dL (65-110); Potassium 3.9 mmol/L (3.4-5.0); Sodium 136 mmol/L (137-145); Total Protein 7.4 g/dL (6.3-8.2)
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
== END 2025-08-08 16:28 | disposition home or self-care (01) ==
PROVIDERS: Emergency Provider Family Medicine; PCP Family Medicine
DX: E11.649 Type 2 diabetes mellitus with hypoglycemia without coma (principal); I10 Essential (primary) hypertension; Z96.41 Presence of insulin pump (external) (internal); Z90.49 Acquired absence of other specified parts of digestive tract; Z79.4 Long term (current) use of insulin
CPT/HCPCS: 36415; 80053; 82948; 85025; 99283